=== PATIENT | male | born 1980 | race Caucasian/White ===

== ENCOUNTER 2017-09-08 20:00 | Inpatient (IN) ==
[2017-09-08] MEDS ORDERED: 0.9 % Sodium Chloride 1,000 ML IVC ONE ×2 (20:24→22:53)
--- NOTE | 2017-09-08 20:28 | Emergency Department Note ---
Disposition Clinical Impression: Elevated troponin Sepsis Qualifiers: Sepsis type: sepsis due to unspecified organism Qualified Code(s): A41.9 - Sepsis, unspecified organism Community acquired pneumonia Qualifiers: Laterality: unspecified laterality Qualified Code(s): J18.9 - Pneumonia, unspecified organism Disposition: Admitted As Inpatient Condition: Good Nausea/Vomiting/Diarrhea HPI - General Chief complaint: ED Nausea/Vomiting/Diarrhea Stated complaint: N/V since Wednesday night Time Seen by Provider: 09/08/17 20:23 Source: patient Mode of arrival: private vehicle Limitations: no limitations Nursing Notes Reviewed: Yes Vital Signs Reviewed: Yes - History of Present Illness HPI Narrative: 37-year-old male history of prior IV drug abuse who presents to the ER with a chief complaint of nausea vomiting and chest pain. Patient states she has felt unwell for 2 days with nausea and vomiting. States today he woke up with some right sided pleuritic chest pain. No prior history of cardiovascular disease. No shortness of breath. He is continue to feel unwell during this time. Denies any fevers chills or cough. No other complaints. Pt Subjective Complaint: nausea, vomiting Onset (ago): day(s) Associated Abdominal Pain: No Improves with: nothing Worsens with: nonthing Associated symptoms: Reports: chest pain, nausea/vomiting. Denies: cough, fever /chills - Related Data Home Medications Medication Instructions Recorded Confirmed Ibuprofen 01/18/17 Previous Rx's Medication Instructions Recorded Cyclobenzaprine [Flexeril] 10 mg PO HS PRN #10 tablet 01/18/17 Diclofenac Potassium 50 mg PO TID PRN #20 tablet 01/27/17 Allergies Allergy/AdvReac Type Severity Reaction Status Date / Time No Known Allergies Allergy Verified 02/06/16 20:59 All systems ED: reviewed and negative except as stated. Constitutional: Denies: fever Cardiovascular: Reports: chest pain Respiratory: Denies: cough, dyspnea Gastrointestinal: Reports: nausea, vomiting. Denies: abdominal pain, diarrhea Past Medical History - Past Medical History Attestation: Yes The following information was validated with the patient. Source: patient Medical history: Reports: no medical history Psychiatric history: Reports: no psych history - Social History Smoking Status: Current every day smoker Smokeless Tobacco Status: No Alcohol use: Reports: none Drug use: Reports: none Physical Exam - General Limitations: no limitations General appearance: alert, in no apparent distress - Head Head exam: atraumatic, normocephalic - Eye Eye exam: Present: normal appearance - ENT ENT exam: normal exam - Neck Neck exam: Present: normal inspection, full ROM - Chest Chest inspection: Present: normal inspection, symmetric chest wall rise - Respiratory Respiratory exam: Present: normal lung sounds bilaterally - Cardiovascular Cardiovascular exam: Present: normal rhythm, tachycardia, normal heart sounds - Abdominal Exam Abdominal exam: Present: soft, Non-Tender. Absent: tenderness - Extremities Exam Extremities exam: Present: normal inspection, full ROM - Expanded Upper Extremity Exam Shoulder exam: Present: normal inspection, full ROM Arm exam: Present: normal inspection, full ROM Elbow exam: Present: normal inspection, full ROM Forearm/Wrist exam: Present: normal inspection, full ROM Hand exam: Present: normal inspection, full ROM Vascular exam: Normal: radial pulse - Expanded Lower Extremity Exam Hip/Pelvis exam: Present: normal inspection, full ROM Upper leg exam: Present: normal inspection, full ROM Knee exam: Present: normal inspection, full ROM Lower leg exam: Present: normal inspection, full ROM Ankle exam: Present: normal inspection, full ROM Foot/toe exam: Present: normal inspection, full ROM - Skin Skin exam: Present: warm, dry Course Course Narrative: Patient seen and examined. Vital signs reviewed. We will give him some IV fluids as well as Zofran as well as obtain an EKG, labs including troponin and electrolytes. - Reevaluation(s) Reevaluation #1: Interventional cardiology paged for consultation for EKG. Time: 20:28 Reevaluation #2: Patient remains tachycardic after 1 L of fluids also developed a fever of 101.3 here. Tylenol and additional fluids ordered. He also does meet SIRS criteria with fever tachycardia, leukocytosis and pneumonia. We will add cultures, lactate and Levaquin for pneumonia. - Consultations Consultation #1: I spoke with the on-call maid supervisor Dr. Bliss. Discussed the patient's history, vitals as well as EKG and sent to him for interpretation. Via text reported not a STEMI. Vital Signs Temperature 99.2 F 09/08/17 20:02 Pulse Rate 143 09/08/17 20:02 Respiratory Rate 21 09/08/17 20:02 Blood Pressure 117/73 09/08/17 20:02 O2 Sat by Pulse Oximetry 97 09/08/17 20:02 Temperature 99.9 F H 09/09/17 01:13 Pulse Rate 105 09/09/17 01:13 Respiratory Rate 16 09/09/17 01:21 Blood Pressure 106/61 09/09/17 01:21 O2 Sat by Pulse Oximetry 97 09/09/17 01:13 Oxygen Delivery Oxygen Delivery Nasal Cannula Nausea/Vomiting/Diarrhea - [facility] Narrative Medical decision making narrative: 37-year-old male presents to the ER due to nausea and vomiting for 2 days with generalized aches, chest pain. Noted to be tachycardic upon arrival. EKG was concerning for potential elevation and was sent to interventional cardiology for evaluation. Interventional cardiology review the EKG and reported it was not a STEMI. His chest pain is atypical here. He was noted to have a fever later as well as a leukocytosis with findings of pneumonia on his x-ray. Patient given 2 L of IV fluids for sepsis protocol as well as lactate and cultures. Patient given IV Levaquin for antibiotics. Troponin of 0.04. He is admitted to the hospitalist service for elevated troponin, sepsis, pneumonia. - Lab Data Lab results reviewed: Yes I reviewed the patient's lab results. Result diagrams: 09/08/17 20:35 09/08/17 20:35 Lab Results 09/08/17 09/08/17 09/08/17 Range/Units 20:35 20:35 20:35 WBC 16.2 H (4.3-11.1) K/mcL RBC 4.15 L (4.19-5.50) M/mcL Hgb 13.0 (12.9-16.9) g/dL Hct 37.2 L (37.5-50.1) % MCV 89.6 (83.0-100.0) fL MCH 31.3 (28.0-33.3) pg MCHC 34.9 (31.6-35.5) g/dL RDW 12.7 (11.5-14.5) % Plt Count 92 L (140-400) K/mcL MPV 10.4 (9.4-12.4) fL Immature Gran % 0.9 (0-4) % Seg Neutrophils % 88.5 % Lymphocytes % 2.6 % Monocytes % 7.6 % Eosinophils % 0.1 % Basophils % 0.3 % Neutrophils # 14.3 H (1.6-8.9) K/mcL Lymphocytes # 0.4 L (0.6-4.6) K/mcL Monocytes # 1.2 (0.0-1.3) K/mcL Eosinophils # 0.0 (0.0-0.6) K/mcL Basophils # 0.1 (0.0-0.2) K/mcL Toxic Granulation Present A (Not Present) Toxic Vacuolation Present A (Not Present) Platelet Estimate Decreased L (Normal) Immature Plt Fraction 5.4 (1.1-6.1) % Sodium 126 L (136-145) mEq/L Potassium 3.6 (3.5-5.1) mEq/L Chloride 92 L (98-107) mEq/L Carbon Dioxide 25 (23-29) mEq/L BUN 13 (6-20) mg/dL Creatinine 0.97 (0.70-1.30) mg/dL Est GFR ( Amer) > 60 (> 60) Est GFR (Non-Af Amer) > 60 (> 60) BUN/Creatinine Ratio 13 (6-26) Glucose 140 H (70-105) mg/dL Calculated Osmolality 264 L (280-300) Lactic Acid (0.5-2.2) mmol/L Calcium 8.4 L (8.6-10.3) mg/dL Troponin I 0.04 H* (< 0.04) ng/mL 09/08/17 Range/Units 23:15 WBC (4.3-11.1) K/mcL RBC (4.19-5.50) M/mcL Hgb (12.9-16.9) g/dL Hct (37.5-50.1) % MCV (83.0-100.0) fL MCH (28.0-33.3) pg MCHC (31.6-35.5) g/dL RDW (11.5-14.5) % Plt Count (140-400) K/mcL MPV (9.4-12.4) fL Immature Gran % (0-4) % Seg Neutrophils % % Lymphocytes % % Monocytes % % Eosinophils % % Basophils % % Neutrophils # (1.6-8.9) K/mcL Lymphocytes # (0.6-4.6) K/mcL Monocytes # (0.0-1.3) K/mcL Eosinophils # (0.0-0.6) K/mcL Basophils # (0.0-0.2) K/mcL Toxic Granulation (Not Present) Toxic Vacuolation (Not Present) Platelet Estimate (Normal) Immature Plt Fraction (1.1-6.1) % Sodium (136-145) mEq/L Potassium (3.5-5.1) mEq/L Chloride (98-107) mEq/L Carbon Dioxide (23-29) mEq/L BUN (6-20) mg/dL Creatinine (0.70-1.30) mg/dL Est GFR ( Amer) (> 60) Est GFR (Non-Af Amer) (> 60) BUN/Creatinine Ratio (6-26) Glucose (70-105) mg/dL Calculated Osmolality (280-300) Lactic Acid 1.0 (0.5-2.2) mmol/L Calcium (8.6-10.3) mg/dL Troponin I (< 0.04) ng/mL - Radiology Data Radiology results reviewed: Yes I reviewed the patient's radiology results. Chest X-Ray 09/08/17 20:06 IMPRESSION: Findings concerning for bilateral lower lobe pneumonia with possible nodule in the left upper lobe warranting follow-up D/ / Antoine Lepe MD / Antoine Lepe MD Interpreting Provider: Antoine Lepe MD - EKG Data EKG attestation: Yes I reviewed and interpreted this EKG. EKG results narrative: EKG demonstrates sinus tachycardia with rate of 135. Normal axis. Normal intervals. Normal R-wave progression. There are ST elevations in leads V1 and V2 without reciprocal changes. No ST depressions. No previous EKG for comparison. S.B.A.R. - S.B.A.R. Situation: Demographics, MOA Background: Presenting Complaint, Relevant PMH, Meds, & Allergies Assessment: Vital Signs, Course and respsone to treatment, Exam Concerns, Patient/Family Expectation, Pertinant Lab Results Recommendation: Barrier(s) to disposition, Recommendation based on pending studies, treatments, or consults S.B.A.R. Report Given to: Dr. Collins Attestation Statement - Attestation Attestation: I, Ashok March MD, personally evaluated this patient and discussed their management with the resident physician. I reviewed the resident's note and agree with the documented findings, medical decision making, and plan of care. 37-year-old male presents to the emergency department with a complaint that for 2 days prior to today he has had nausea and vomiting all day and unable to keep anything down. Today the nausea and vomiting resolved however today he states he is just generalized body aches and not felt well. He complains of pain in his left foot. He also complains of pain in both shoulders and some localized pleuritic pain in the right mid chest which is worse with breathing. He denies shortness of breath but states it hurts to breathe. No definite fever. Some cough. No history of any heart disease or hypertension or breathing problems. He does have a history of IV drug abuse but denies recent use. He uses heroin. On examination patient is a well-developed well-nourished male in no acute distress. He is alert and oriented 3. There is no cyanosis or diaphoresis. Chest is nontender to palpation. Breath sounds are clear and equal bilaterally with no rales or wheezes noted. Heart is regular with a moderate tachycardia. Abdomen is soft and nontender with normal bowel sounds. Labs reviewed. WBC 16.2 with 88.5% segs. Sodium 126. Troponin 0.04. Chest x- ray shows bilateral lower lobe pneumonia with possible left upper lobe nodule. EKG shows a sinus tachycardia with a ventricular rate of 135. There is ST segment elevation in V1 and V2 with no reciprocal changes noted. EKG was reviewed by the maid supervisor, Dr. Bliss, who did not feel this was a STEMI.
[2017-09-08 20:46] LABS: Basophils % 0.3 %; Eosinophils % 0.1 %
[2017-09-08 20:48] LABS: Basophils # 0.1 K/mcL (0.0-0.2); Hematocrit 37.2 % (37.5-50.1); Immature Granulocytes % 0.9 % (0-4); Immature Platelets 5.4 % (1.1-6.1); Lymphocytes # 0.4 K/mcL (0.6-4.6); Lymphocytes % 2.6 %; Mean Corpuscular HGB Conc 34.9 g/dL (31.6-35.5); Mean Corpuscular Hemoglobin 31.3 pg (28.0-33.3); Mean Corpuscular Volume 89.6 fL (83.0-100.0); Mean Platelet Volume 10.4 fL (9.4-12.4); Monocytes # 1.2 K/mcL (0.0-1.3); Monocytes % 7.6 %; Red Blood Count 4.15 M/mcL (4.19-5.50); Red Cell Distribution Width 12.7 % (11.5-14.5); Segmented Neutrophils % 88.5 %
[2017-09-08 21:12] LABS: Neutrophils # 14.3 K/mcL (1.6-8.9); Platelet Count 92 K/mcL (140-400)
[2017-09-08 21:16] LABS: Platelet Estimate Decreased (Normal); Toxic Granulation Present (Not Present); Toxic Vacuolation Present (Not Present)
[2017-09-08 21:23] LABS: BUN/Creatinine Ratio 13 (6-26); Blood Urea Nitrogen 13 mg/dL (6-20); Calcium 8.4 mg/dL (8.6-10.3); Carbon Dioxide 25 mEq/L (23-29); Chloride 92 mEq/L (98-107); Glucose 140 mg/dL (70-105); Osmolality,Calculated 264 (280-300); Potassium 3.6 mEq/L (3.5-5.1); Sodium 126 mEq/L (136-145); eGFR For African Americans > 60 (> 60); eGFR For Non-African Americans > 60 (> 60)
[2017-09-08] MEDS ORDERED: Aspirin 81 MG TAB.CHEW PO ONE (21:48)
[2017-09-08] MEDS ORDERED: Ketorolac 15 MG/ML VIAL IVP ONE (21:48)
[2017-09-08] MEDS ORDERED: Levofloxacin 750 MG/150 ML 750 MG/150 ML BAG IVPB ONE (22:53)
[2017-09-09] MEDS ORDERED: Naloxone 0.4 MG/ML INJ IVP PRN (01:20)
[2017-09-09] MEDS ORDERED: Vancomycin 1,000 MG in D5% in Water 250 ML IVPB SCH (02:00)
[2017-09-09] MEDS: 0.9 % Sodium Chloride 1,000 ML IVC SCH ×2 (03:07→17:24)
[2017-09-09 03:16] LABS: Eosinophils % 0.2 %; Mean Platelet Volume 10.2 fL (9.4-12.4); Red Blood Count 3.68 M/mcL (4.19-5.50)
[2017-09-09 03:17] LABS: Basophils % 0.2 %; Hematocrit 33.1 % (37.5-50.1); Hemoglobin 11.4 g/dL (12.9-16.9); Immature Granulocytes % 1.3 % (0-4); Immature Platelets 5.9 % (1.1-6.1); Lymphocytes # 0.4 K/mcL (0.6-4.6); Lymphocytes % 2.8 %; Mean Corpuscular HGB Conc 34.4 g/dL (31.6-35.5); Mean Corpuscular Volume 89.9 fL (83.0-100.0); Monocytes # 1.1 K/mcL (0.0-1.3); Monocytes % 7.4 %; Neutrophils # 13.4 K/mcL (1.6-8.9); Nucleated Red Blood Cells 0.5 /100 WBC (0); Red Cell Distribution Width 12.8 % (11.5-14.5); Segmented Neutrophils % 88.1 %
[2017-09-09 03:35] LABS: BUN/Creatinine Ratio 14 (6-26); Blood Urea Nitrogen 14 mg/dL (6-20); Calcium 7.5 mg/dL (8.6-10.3); Carbon Dioxide 24 mEq/L (23-29); Chloride 96 mEq/L (98-107); Glucose 111 mg/dL (70-105); Magnesium 1.6 mg/dL (1.6-2.6); Osmolality,Calculated 265 (280-300); Potassium 3.7 mEq/L (3.5-5.1); Sodium 127 mEq/L (136-145); eGFR For African Americans > 60 (> 60); eGFR For Non-African Americans > 60 (> 60)
[2017-09-09 03:44] LABS: Platelet Count 77 K/mcL (140-400)
[2017-09-09 03:50] LABS: Platelet Estimate Decreased (Normal)
--- NOTE | 2017-09-09 04:12 | Internal Med History&Physical ---
Date of Encounter: 09/09/17 Time of Encounter: 01:00 Assessment and Plan (1) DVT prophylaxis Current visit: Yes Status: Acute Heparin SC (2) History of intravenous drug abuse Current visit: Yes Status: Acute Pt said last IV drug use was 5 months ago. (3) Elevated troponin Current visit: Yes Status: Acute Pt c/o chest pain with first troponin 0.04. Need to r/o ACS which although less likely in this young pt. - Continuous cardiac monitoring. - F/U 3 sets of troponin. (4) Sepsis Current visit: Yes Status: Acute Pt meets sepsis criteria by leukocytosis, tachycardia, and fever. - IVF resuscitation started in ER, will cont, Lactate 1.0>1.0 - Place pt on broad spectrum Abx vanco and zosyn considering hx of IVDU - Follow up blood culture - Echo to r/o vegetations/endocarditis. Pt is at high risk because he is on vanco, need close monitoring. Qualifiers: Sepsis type: sepsis due to unspecified organism Qualified Code(s): A41.9 - Sepsis, unspecified organism (5) Pneumonia Current visit: Yes Status: Acute CXR shows B/L lower lobe pneumonia. Consider pt has hx of IVDU, will order CT chest to r/o septic emboli. - Place pt on broad spectrum Abx and f/u with blood culture. Qualifiers: Pneumonia type: due to Pneumococcus Laterality: bilateral Lung location: lower lobe of lung Qualified Code(s): J13 - Pneumonia due to Streptococcus pneumoniae (6) Lung nodules Current visit: Yes Status: Acute CXR shows possible left upper lobe nodules, pt has hx of smoking. Will order CT chest to confirm nodule and determine f/u protocol. Internal Medicine - H&P: HPI Chief complaint: SOB Admitted From: Home Plans for Post Hospital Care: Home History of present illness: Mr. Reynoso is a 37 year old male with Hx of IVDU present to ER for SOB. Pt said the SOB started from this morning. Pt also has fever. Pt denies cough. Pt c /o chest pain on right side of chest, radiated to left shoulder and left foot. Pt denies nausea or diaphoresis. Pt also c/o whole body muscle ache. In ER, CXR shows bibasal pneumonia, pt was admitted for further management. Past Med Surg Social Fam HX - Past Medical History Medical history: no medical history Psychiatric history: no psych history - Social History Smoking Status: Current every day smoker Smokeless Tobacco Status: No Alcohol use: none Drug use: none - Family History Mother History Unknown: Yes Internal Medicine - H&P: Meds Cyclobenzaprine [Flexeril] 10 mg PO HS PRN #10 tablet 01/18/17 [Rx] Ibuprofen 01/18/17 [History] Diclofenac Potassium 50 mg PO TID PRN #20 tablet 01/27/17 [Rx] 3 Allergy/AdvReac Type Severity Reaction Status Date / Time No Known Allergies Allergy Verified 02/06/16 20:59 All Systems PM: A 10-system review of systems was performed and is negative for pertinent findings except as documented above in the HPI. - Constitutional Vitals: Temp Pulse Resp BP Pulse Ox 99.4 F 107 16 135/73 97 09/09/17 01:42 09/09/17 01:42 09/09/17 01:42 09/09/17 01:42 09/09/17 02:30 General appearance: Present: A&O X 3, no acute distress, answers questions appropriately - Head Head exam: Present: atraumatic, normocephalic - Eye Eye exam: Present: PERRL, conjuntiva pink, sclera anicteric Pupils: Present: PERRL - Neck Neck exam general surgery: Present: supple, trachea midline. Absent: lymphadenopathy - Respiratory Respiratory exam: Present: CTAB. Absent: accessory muscle use, rales, rhonchi, wheezes - Cardiovascular Cardiovascular exam: Present: RRR, +S1, +S2, tachycardia. Absent: diastolic murmur, gallop, rubs, systolic murmur - GI/Abdominal GI/Abdominal exam: Present: normal bowel sounds, soft, no peritoneal signs. Absent: distended, tenderness - Extremities Exam Extremities exam: Present: warm, radial pulses palpable and symmetrical. Absent : calf tenderness, cyanotic, pedal edema - Neurological Exam Neurological exam: Present: CN II-XII intact, oriented X3, no focal deficits. Absent: pronater drift, facial droop, speech deficit - Skin Skin exam: Present: dry, intact Internal Med - H&P Results - Labs CBC & Chem 7: 09/09/17 03:03 09/09/17 03:03 Labs: Short CBC 09/09/17 Range/Units 03:03 WBC 15.2 H (4.3-11.1) K/mcL Hgb 11.4 L D (12.9-16.9) g/dL Hct 33.1 L (37.5-50.1) % Plt Count 77 L (140-400) K/mcL Neutrophils # 13.4 H (1.6-8.9) K/mcL BMP 09/09/17 03:03 Sodium 127 L Potassium 3.7 Chloride 96 L Carbon Dioxide 24 BUN 14 Creatinine 0.97 Glucose 111 H Calcium 7.5 L Cardiac Enzymes 09/09/17 Range/Units 03:03 Troponin I < 0.03 (< 0.04) ng/mL - EKG Data EKG shows normal: sinus rhythm Rate: tachycardia
[2017-09-09] MEDS: Ketorolac 15 MG/ML VIAL IVP PRN ×3 (04:58→17:25)
[2017-09-09] MEDS: Acetaminophen 325 MG TABLET PO PRN (04:58)
[2017-09-09] MEDS: *HR* Heparin 5,000 UNIT/ML VIAL SQ SCH ×2 (04:58→17:25)
[2017-09-09] MEDS ORDERED: Aminoglycoside Consult 1 EACH MC ONE (08:16)
[2017-09-09 11:34] LABS: Acinetobacter baumannii by PCR Not Detected (Not Detect); Candida albicans by PCR Not Detected (Not Detect); Candida glabrata by PCR Not Detected (Not Detect); Candida krusei by PCR Not Detected (Not Detect); Candida parapsilosis by PCR Not Detected (Not Detect); Candida tropicalis by PCR Not Detected (Not Detect); Enterococcus by PCR Not Detected (Not Detect); Escherichia coli by PCR Not Detected (Not Detect); Klebsiella oxytoca by PCR Not Detected (Not Detect); Klebsiella pneumoniae by PCR Not Detected (Not Detect); Pseudomonas aeruginosa by PCR Not Detected (Not Detect); Serratia marcescens by PCR Not Detected (Not Detect); Staphylococcus aureus by PCR ***DETECTED*** (Not Detect); Streptococcus agalactiae(B)PCR Not Detected (Not Detect); Streptococcus by PCR Not Detected (Not Detect); Streptococcus pneumoniae PCR Not Detected (Not Detect); Streptococcus pyogenes (A) PCR Not Detected (Not Detect); mecA Methicillin-Resist Gene Not Detected (Not Detect)
--- NOTE | 2017-09-09 11:52 | Event Note ---
Date of Encounter: 09/09/17 Time of Encounter: 11:50 Patient admitted yesterday with sepsis. Workup shows elevated white count. Patient has been febrile with a MAXIMUM TEMPERATURE of 100.6. CT chest shows findings of possibly septic emboli. Blood cultures are positive. Patient is on vancomycin and Zosyn. An echo is pending. We will consult ID to help with antibiotics as I suspect the patient may have infective endocarditis. Continue with IV fluids. The patient is also being treated as possible pneumonia although I suspect that this is less likely and his findings are most likely secondary to the septic emboli.
--- NOTE | 2017-09-09 14:10 | Infectious Disease Consult ---
Date of Encounter: 09/09/17 Time of Encounter: 13:00 Assessment and Plan (1) Severe sepsis Status: Acute Assessment and plan: 4 SIRS criteria met on 09/09: febrile, tachycardic, tachypnic, and leuokcytosis present secondary to MSSA bacteremia Slight elevation in serum troponin, septic emboli present, possible septic joint (2) MSSA bacteremia Status: Acute Assessment and plan: 2/2 blood cultures preliminarily positive for gram positive cocci PCR serology positive for Staph aureus Complicated by the presence of septic emboli Possible septic left shoulder 1 Major and 3 minor sky criteria met bacteremia of staphylcoccus aureus history of IV drug use septic emboli present Continued fever Recommend PURVI to further evaluate for valvular involvement in the heart Will repeat blood cultures Stop Vancomycin and Zosyn Start cefazolin 2g Q8hr (3) History of intravenous drug abuse Status: Acute Assessment and plan: Patient reports last heroin use 5 months ago and reports using clean needles while he was using Will obtain hepatitis panel and HIV screen Infectious Disease HPI - Data of Consult Patient: new to practice Consult date: 09/09/17 Requesting Physician: Trevor Dooley Primary Care Provider: PCP NONE - Consult Narrative Reason for consult: bacteremia/septic emboli/suspected endocarditis History of present illness: Mr. Reynoso is a 37 year old male with a history of IV drug usage presents to [facility] on 09/08 due to shortness of breath, fever, and chest pain. ID was consulted on 09/09 jewell to concerns of bacteremia, septic emboli, and endocarditis. He states that prior to coming to the hospital he had been having low grade fevers, nuasea with vomiting, and anorexia for several days. When he woke this morning however he states the nausea had gone away and was replaced with chest pain and shortness of breath with continued low grade fevers. Upon presentation the patient was found to be septic. A CXR revealed signs concerning for pneumonia and a follow up CT showed septic emboli and small pleural effusions.His troponin was mildly elevated. He was given fluids and antibiotics (Vancomycin and Zosyn) in the ER last night. Enchocardiogram performed on 09/09 showed mild tricuspid regurgitation, but was otherwise normal. Patient was found to have 2/2 positive blood cultures for gram+ cocci and PCR positive for staphylococcus. On 09/09 it appears that his white count has remained relatively stable (though might be starting to trend down) and his troponin normalized. He has a prior medical history significant for IV drug use. He states he would use clean needs to use heroin. He reports that his last use was 05/11. He is a current smoker, reporting smoking 1ppd for 1 years. He does not drink and denies current drug usage. He currently lives at home with his mom who has 2 dogs and a cat all of which are up to date on their immunizations. He denies any recent travel or sick contacts. As of this afternoon, he is lying in bed stating that he is more comfortable than last night. He reports that he has continued chest pain that is primarily located in the right anterior chest. He states that the pain is sharp and made worse with inspiration and moving. Pushing on the spot does not elicit the pain. He hasn't really taken anything for it and states that it radiates to both shoulders. He denies having diaphoresis, chills, nausea or vomiting at this point in time. He has never had anything like this before. CC: Trevor Dooley Past Med Surg Social Fam HX - Past Medical History Medical history: no medical history Psychiatric history: no psych history - Social History Smoking Status: Current every day smoker Smokeless Tobacco Status: No Alcohol use: none Drug use: none - Family History Mother History Unknown: Yes Infectious Disease-CN:Meds No Known Home Drugs 09/09/17 [History] 3 Allergy/AdvReac Type Severity Reaction Status Date / Time No Known Allergies Allergy Verified 09/09/17 08:18 - Constitutional Constitutional: Present: anorexia, fever(s). Absent: chills, headache(s), night sweats - EENT Eyes: Absent: change in vision Nose, mouth and throat: Absent: headache(s), neck pain - Cardiovascular Cardiovascular: Present: dyspnea. Absent: chest pain, diaphoresis - Respiratory Respiratory: Present: dyspnea, hemoptysis, pain on inspiration. Absent: cough - Gastrointestinal Gastrointestinal: Absent: abdominal pain, constipation, diarrhea, nausea, vomiting - Genitourinary Additional comments: denies dysuria, denies hematuria - Musculoskeletal Musculoskeletal: Present: arthralgias (left shoulder). Absent: myalgias, neck pain - Integumentary Integumentary: Absent: change in nails, new lesions, pruritus, rash, skin ulcer , sores, jaundice - Neurological Neurological: Absent: headache(s) Exam - Constitutional Vitals: Temp Pulse Resp BP Pulse Ox 100.1 F H 110 17 108/66 98 09/09/17 05:56 09/09/17 05:56 09/09/17 05:56 09/09/17 05:56 09/09/17 05:56 General appearance: average body habitus, mild distress - Head Head exam: Present: atraumatic, normal inspection, normocephalic - Expanded Head Exam Head exam: Absent: Worrell's sign, contusion, hematoma, raccoon eyes - Eye Eye exam: Present: EOMI, normal appearance, PERRL, conjuntiva pink. Absent: conjunctival injection, scleral icterus Additional comments: no conjunctival hemmorhages - ENT ENT exam: Present: mucous membranes moist, normal oropharynx - Neck Neck exam: Absent: lymphadenopathy, tenderness - Respiratory Respiratory exam: Present: rales (b/l). Absent: accessory muscle use, chest wall tenderness, rhonchi, stridor, wheezes - Cardiovascular Cardiovascular exam: Present: tachycardia. Absent: diastolic murmur, gallop, rubs, systolic murmur - GI/Abdominal GI/Abdominal exam: Present: soft. Absent: organomegaly, rebound, rigid, tenderness - Extremities Exam Extremities exam: Present: tenderness (in left shoulder). Absent: calf tenderness, joint swelling - Neurological Exam Neurological exam: Present: alert, CN II-XII intact, oriented X3. Absent: motor sensory deficit - Psychiatric Psychiatric exam: Present: normal affect, normal mood - Skin Skin exam: Present: dry, intact, normal color, warm Additional comments: no stigmata of endocarditis present Infectious Disease CN: Results - Labs CBC & Chem 7: 09/09/17 03:03 09/09/17 03:03 Cultures: 2/2 blood culture preliminarily positive for gram positive cocci PCR positive for staphylcoccus aureus Consult Discharge Plan - Plan Referrals: Jorge Pabon DO [Resident] - 10/15/17 2:00 pm - Attending Attestation I examined this patient and my medical decision-making was reviewed with the Resident Physician. I agree with the documented findings, disposition and treatment plan as described except to the extent set forth below. This is an addendum to original report dictated by resident physician. Please refer to residents note for full details. Patient is a 37-year-old gentleman who does not have any active medical problems and surgical history is noncontributory with no hardware in his body and a social history of IV drug use, last used IV drugs a week and half ago where he relapsed but prior to that was April of last year came in to [facility] complaining of nausea vomiting and pleuritic chest pain for a few days prior to admission. Patient was also noted in the emergency department to be febrile, tachycardic and had leukocytosis with a WBC of 16.2 thousand. Workup on the patient CT chest revealed multiple septic emboli and interesting emphysematous changes on the apices of the lungs that at her much worse when it comes his age. Patient also had blood cultures done on 09/08/17 and 2 out of 2 sets grew MSSA. We were asked to evaluate the patient and make further recommendations. On physical exam patient appears toxic he appears ill and uncomfortable. Patient is complaining of pleuritic chest pain and having pain with deep breathing. Patient has no conjunctival hemorrhage, I did not appreciate any murmur, no endocarditis stigmata on the skin. On muscle skeletal exam patient does have joint pain in bilateral shoulders but much worse on the left. There was some tenderness to palpation but will do was no edema or erythema. There was Pain with passive movement. Patient has a complicated MSSA bacteremia with septic emboli to the lungs and concern for septic emboli to the shoulder as well. Likely source is IV drug use. Patient last used IV drugs a week and a half ago. At this point repeat blood cultures to make sure the MSSA bacteremia has resolved. Patient has IV drug use, so I will check hepatitis B and C profile and HIV status. Well need to ask orthopedics to evaluate his shoulder and see if they need to do an arthrocentesis or imaging. I believe this patient does not require vancomycin and Zosyn at this point, consider switching to cefazolin 2 g IV every 8 hours. Duration of treatment is at least 4-6 weeks. Patient will be challenging because he is an IV drug user Im not sure we can put a PICC line in him. Well have to discuss with social work and see what we can do regarding placement.
--- NOTE | 2017-09-09 19:00 | Orthopedic Consult Note ---
Date of Encounter: 09/09/17 Time of Encounter: 18:51 History of Present Illness Chief complaint: Left shoulde pain, resolving HPI: Mr. Reynoso is a 37 year old clmog-xwwy-[id number] male admitted with several day history of generalized malaise and shortness of breath with low-grade fevers. He was admitted and found to have MSSA bacteremia. Patient had a CT of the chest performed and is suspicious for septic emboli. Patient does have a history of IV drug abuse in the past. Patient states that he developed left shoulder pain with the onset of the worsening pain in his chest. He states that today the pain is much improved from where it was last night. Denies any previous episodes of pain or difficulty with the shoulder. Denies neurovascular complaints. Denies any limitations in motion or function. Complete history and physical data was reviewed, please see the completed portion of the medical record for those details. Pertinent orthopedic examination reveals normal range of motion function and strength. No evidence of impingement. No evidence of rotator cuff weakness. No evidence of periarticular swelling nor effusion. No tenderness to palpation of the clavicle acromion with a proximal humerus. I reviewed a chest x-ray as well as a chest CT scan. The limited visualization of the shoulder at this time showed no evidence of an effusion or evidence of fluid about the shoulder proper. No evidence of bony destruction. Laboratory data included a white cell count of 16.2 which has dropped to 15.2. Platelet now has dropped from 92, 000-77,000. Neutrophil count has dropped from 14.3-13.4. Patient is hyponatremic at 127. BUN/creatinine are normal. 2 peripheral blood cultures were positive for gram-positive cocci. Serology was positive for Staphylococcus aureus, MSSA. Impression: Left shoulder pain, resolving. Suspected secondary to pulmonary or pleuritic etiology. Doubt septic process Recommendation: I would not recommend any further workup unless the patient complains of worsening pain. A septic joint would probably not improved with less than 24 hours worth of intravenous antibiotics. If the patient's condition progresses or worsens, will consider MRI of the shoulder. If an effusion is identified, arthrocentesis for studies would be indicated. Will follow as needed. Thank you very much for allowing me to see and care for Mr. Reynoso. Sincerely, Guido Mcknight,DO Past Med Surg Social Fam HX - Past Medical History Medical history: no medical history Psychiatric history: no psych history - Social History Smoking Status: Current every day smoker Smokeless Tobacco Status: No Alcohol use: none Drug use: none - Family History Mother History Unknown: Yes Medications and Allergies No Known Home Drugs 09/09/17 [History] 3 Allergy/AdvReac Type Severity Reaction Status Date / Time No Known Allergies Allergy Verified 09/09/17 08:18 All Systems Reviewed: A 10-system review of systems was performed and is negative for pertinent findings except as documented above in the HPI. Physical Exam - Constitutional Vitals: Temp Pulse Resp BP Pulse Ox 98.1 F 107 17 122/74 96 09/09/17 13:49 09/09/17 13:49 09/09/17 13:49 09/09/17 13:49 09/09/17 13:49 Results - Labs Result Diagrams: 09/09/17 03:03 09/09/17 03:03 Labs: Abnormal lab results WBC 15.2 K/mcL (4.3-11.1) H 09/09/17 03:03 RBC 3.68 M/mcL (4.19-5.50) L 09/09/17 03:03 Hgb 11.4 g/dL (12.9-16.9) L D 09/09/17 03:03 Hct 33.1 % (37.5-50.1) L 09/09/17 03:03 Plt Count 77 K/mcL (140-400) L 09/09/17 03:03 Neutrophils # 13.4 K/mcL (1.6-8.9) H 09/09/17 03:03 Lymphocytes # 0.4 K/mcL (0.6-4.6) L 09/09/17 03:03 Nucleated RBCs/100 WBC 0.5 /100 WBC (0) H 09/09/17 03:03 Toxic Granulation Present (Not Present) A 09/08/17 20:35 Toxic Vacuolation Present (Not Present) A 09/08/17 20:35 Platelet Estimate Decreased (Normal) L 09/09/17 03:03 Sodium 127 mEq/L (136-145) L 09/09/17 03:03 Chloride 96 mEq/L (98-107) L 09/09/17 03:03 Glucose 111 mg/dL (70-105) H 09/09/17 03:03 Calculated Osmolality 265 (280-300) L 09/09/17 03:03 Calcium 7.5 mg/dL (8.6-10.3) L 09/09/17 03:03 Staphylococcus sp PCR DETECTED (Not Detect) A 09/08/17 23:06 Staph aureus (PCR) DETECTED (Not Detect) A 09/08/17 23:06 H & H 09/09/17 Range/Units 03:03 Hgb 11.4 L D (12.9-16.9) g/dL Hct 33.1 L (37.5-50.1) % All other labs normal. Consult Discharge Plan - Plan Referrals: Jorge Pabon DO [Resident] - 10/15/17 2:00 pm
[2017-09-10] MEDS: CeFAZolin Premix DUPLEX 2,000 MG/50 ML BAG IVPB SCH ×3 (00:11→15:17)
[2017-09-10] MEDS: Acetaminophen 325 MG TABLET PO PRN (00:11)
[2017-09-10] MEDS: Ketorolac 15 MG/ML VIAL IVP PRN ×4 (00:18→22:08)
[2017-09-10] MEDS: *HR* Heparin 5,000 UNIT/ML VIAL SQ SCH ×2 (05:12→15:17)
[2017-09-10 05:42] LABS: Basophils % 0.2 %; Hemoglobin 10.4 g/dL (12.9-16.9); Mean Platelet Volume 11.2 fL (9.4-12.4); Red Cell Distribution Width 13.2 % (11.5-14.5); Segmented Neutrophils % 79.3 %
[2017-09-10 05:44] LABS: Eosinophils # 0.1 K/mcL (0.0-0.6); Eosinophils % 0.9 %; Hematocrit 30.1 % (37.5-50.1); Immature Granulocytes % 2.4 % (0-4); Immature Platelets 6.8 % (1.1-6.1); Lymphocytes # 0.7 K/mcL (0.6-4.6); Lymphocytes % 5.8 %; Mean Corpuscular HGB Conc 34.6 g/dL (31.6-35.5); Mean Corpuscular Hemoglobin 31.2 pg (28.0-33.3); Mean Corpuscular Volume 90.4 fL (83.0-100.0); Monocytes # 1.4 K/mcL (0.0-1.3); Monocytes % 11.4 %; Neutrophils # 9.9 K/mcL (1.6-8.9); Red Blood Count 3.33 M/mcL (4.19-5.50)
[2017-09-10 05:56] LABS: Platelet Count 79 K/mcL (140-400)
[2017-09-10 06:11] LABS: BUN/Creatinine Ratio 17 (6-26); Blood Urea Nitrogen 17 mg/dL (6-20); Calcium 7.4 mg/dL (8.6-10.3); Carbon Dioxide 23 mEq/L (23-29); Chloride 106 mEq/L (98-107); Glucose 102 mg/dL (70-105); Osmolality,Calculated 282 (280-300); Potassium 3.8 mEq/L (3.5-5.1); Sodium 135 mEq/L (136-145); eGFR For African Americans > 60 (> 60); eGFR For Non-African Americans > 60 (> 60)
[2017-09-10 06:26] LABS: Platelet Estimate Decreased (Normal)
--- NOTE | 2017-09-10 08:49 | Internal Med Progress Note ---
Date of Encounter: 09/10/17 Time of Encounter: 08:47 - Assessment and plan (1) Sepsis Current Visit: Yes Status: Acute Assessment and plan: Increased as below. Qualifiers: Sepsis type: sepsis due to unspecified organism Qualified Code(s): A41.9 - Sepsis, unspecified organism (2) Infective endocarditis Current Visit: Yes Status: Acute Assessment and plan: We will continue to treat and follow IDs recommendations. Continue cefazolin for now. Follow up on repeat blood cultures. PURVI is pending. TTE with no vegetations. The patient continues to have elevated temperatures. WBC count is trending down. Qualifiers: Infective endocarditis organism: bacterial Chronicity: acute Qualified Code(s): I33.0 - Acute and subacute infective endocarditis (3) MSSA bacteremia Current Visit: Yes Status: Acute Assessment and plan: Repeat blood cultures pending. Continue with cefazolin for now. PURVI pending (4) Pulmonary embolism, septic Current Visit: Yes Status: Acute Assessment and plan: Likely secondary to infective endocarditis. Treatment as above. Qualifiers: Chronicity: acute Acute cor pulmonale presence: without acute cor pulmonale Qualified Code(s): I26.90 - Septic pulmonary embolism without acute cor pulmonale (5) History of intravenous drug abuse Current Visit: Yes Status: Acute Assessment and plan: Patient says he was clean for some time however he had a relapse a couple weeks ago as his mom had kicked him out of his house. The patient was counseled. HIV and hepatitis panel pending (6) DVT prophylaxis Current Visit: Yes Status: Acute Assessment and plan: Heparin subcutaneous - Subjective Interval history: Patient was seen and examined. He had a MAXIMUM TEMPERATURE 102 last night. Patient admitted yesterday with sepsis. Workup showed elevated white count. Patient has been febrile. CT chest shows findings of possibly septic emboli. Blood cultures are positive for MSSA. Patient was on vancomycin and Zosyn which was switched to Ancef per ID. An echo with no vegetations. The patient is also being treated as possible pneumonia although I suspect that this is less likely and his findings are most likely secondary to the septic emboli. - Constitutional Vitals: Temp Pulse Resp BP Pulse Ox 98.2 F 99 16 122/73 94 09/10/17 08:13 09/10/17 08:13 09/10/17 08:13 09/10/17 08:13 09/10/17 08:13 General appearance: Present: A&O X 3, no acute distress, answers questions appropriately Exam: GEN: NAD CVS: RRR. S1, S2, No m/r/g RESP: CTAB ABD: Soft, NT, ND, +BS EXT: No edema. 2+ DP, No rashes NEURO: Nonfocal Internal Medicine: Result - Labs CBC & Chem 7: 09/10/17 04:24 09/10/17 04:24 Labs: Short CBC 09/10/17 Range/Units 04:24 WBC 12.5 H (4.3-11.1) K/mcL Hgb 10.4 L (12.9-16.9) g/dL Hct 30.1 L (37.5-50.1) % Plt Count 79 L (140-400) K/mcL Neutrophils # 9.9 H (1.6-8.9) K/mcL BMP 09/10/17 04:24 Sodium 135 L Potassium 3.8 Chloride 106 Carbon Dioxide 23 BUN 17 Creatinine 1.02 Glucose 102 Calcium 7.4 L Cardiac Enzymes 09/09/17 Range/Units 08:18 Troponin I < 0.03 (< 0.04) ng/mL - Impressions Impressions Echocardiogram 09/09/17 01:27 Impressions: LVEF 60-65%. Normal right ventricular structure and function. Mild tricuspid regurgitation. No pulmonary hypertension. No evidence for valvular vegetations. Left Ventricular Wall Motion: Rest Echo Findings All wall segments showed normal motion. Findings: Study Quality * Technically adequate exam. ECG Findings * Sinus tachycardia. Left Ventricle * LVEF 60-65%. * Normal LV chamber size, wall thickness and function. * Indeterminate diastolic function. Right Ventricle * Normal right ventricular structure and function. Left Atrium * Normal left atrial size. Right Atrium * Normal right atrial size. Aortic Valve * No aortic regurgitation. * Trileaflet aortic valve. * No aortic stenosis. Mitral Valve * No mitral regurgitation. * Normal mitral valve structure. * No mitral stenosis. Tricuspid Valve * Mild tricuspid regurgitation. * Normal tricuspid valve structure. * Estimated RA pressure is 3 mmHg. * Estimated RVSP is 27 mmHg. * No pulmonary hypertension. Pulmonic Valve * Pulmonic valve is not well visualized. * No pulmonic stenosis. * No pulmonic regurgitation. Pulmonary Artery * Pulmonary artery not well visualized. Aorta * Normally sized aortic root. * Ascending aorta not well visualized. Pericardium * There is no pericardial effusion present. Interatrial Septum * No evidence of PFO by color Doppler. IVC * Small IVC size. Normal collapse. Chest CT 09/09/17 10:30 IMPRESSION: 1. Findings are consistent with septic pulmonary emboli as well as more diffuse consolidation in both lower lobes. Small bilateral effusions are present. 2. Emphysema at the lung apices, greater than expected for age. D/ / 09/09/2017 11:29:21 Ted Valadez MD / susan Interpreting Provider: Ted Valadez MD Consult Discharge Plan - Plan Referrals: Jorge Pabon DO [Resident] - 10/15/17 2:00 pm
[2017-09-11] MEDS: CeFAZolin Premix DUPLEX 2,000 MG/50 ML BAG IVPB SCH ×4 (00:29→23:52)
[2017-09-11] MEDS: Ketorolac 15 MG/ML VIAL IVP PRN ×3 (05:17→19:05)
[2017-09-11] MEDS: Acetaminophen 325 MG TABLET PO PRN ×2 (05:18→22:51)
[2017-09-11] MEDS: *HR* Heparin 5,000 UNIT/ML VIAL SQ SCH ×2 (05:26→16:45)
[2017-09-11 05:42] LABS: Basophils % 0.3 %; Eosinophils # 0.1 K/mcL (0.0-0.6); Eosinophils % 1.1 %; Hemoglobin 9.4 g/dL (12.9-16.9); Immature Granulocytes % 1.1 % (0-4); Lymphocytes # 1.2 K/mcL (0.6-4.6); Mean Corpuscular HGB Conc 34.8 g/dL (31.6-35.5); Mean Corpuscular Hemoglobin 30.9 pg (28.0-33.3); Mean Corpuscular Volume 88.8 fL (83.0-100.0); Mean Platelet Volume 10.5 fL (9.4-12.4); Monocytes # 1.2 K/mcL (0.0-1.3); Monocytes % 10.8 %; Neutrophils # 8.1 K/mcL (1.6-8.9); Platelet Count 117 K/mcL (140-400); Red Blood Count 3.04 M/mcL (4.19-5.50); Red Cell Distribution Width 13.2 % (11.5-14.5); Segmented Neutrophils % 75.7 %
[2017-09-11 05:57] LABS: Platelet Estimate Slight Decrease (Normal)
[2017-09-11 06:08] LABS: BUN/Creatinine Ratio 26 (6-26); Blood Urea Nitrogen 22 mg/dL (6-20); Calcium 7.5 mg/dL (8.6-10.3); Carbon Dioxide 22 mEq/L (23-29); Chloride 102 mEq/L (98-107); Glucose 148 mg/dL (70-105); Magnesium 1.7 mg/dL (1.6-2.6); Osmolality,Calculated 276 (280-300); Potassium 3.5 mEq/L (3.5-5.1); Sodium 130 mEq/L (136-145); eGFR For African Americans > 60 (> 60); eGFR For Non-African Americans > 60 (> 60)
[2017-09-11] MEDS: 0.9 % Sodium Chloride 1,000 ML IVC SCH ×2 (09:53→23:52)
--- NOTE | 2017-09-11 11:55 | Internal Med Progress Note ---
Date of Encounter: 09/11/17 Time of Encounter: 09:00 - Assessment and plan (1) Sepsis Current Visit: Yes Status: Acute Assessment and plan: Plan as below. Qualifiers: Sepsis type: sepsis due to unspecified organism Qualified Code(s): A41.9 - Sepsis, unspecified organism (2) Infective endocarditis Current Visit: Yes Status: Acute Assessment and plan: We will continue to treat and follow IDs recommendations. Continue cefazolin for now. Repeat blood cultures are positive. Another set has been sent.. PURVI is pending on Wednesday. TTE with no vegetations. The patient continues to have elevated temperatures. WBC count is trending down. Qualifiers: Infective endocarditis organism: bacterial Chronicity: acute Qualified Code(s): I33.0 - Acute and subacute infective endocarditis (3) MSSA bacteremia Current Visit: Yes Status: Acute Assessment and plan: Repeat blood cultures are positive. Another set has been sent. Continue with cefazolin for now. PURVI pending (4) Pulmonary embolism, septic Current Visit: Yes Status: Acute Assessment and plan: Likely secondary to infective endocarditis. Treatment as above. Qualifiers: Chronicity: acute Acute cor pulmonale presence: without acute cor pulmonale Qualified Code(s): I26.90 - Septic pulmonary embolism without acute cor pulmonale (5) History of intravenous drug abuse Current Visit: Yes Status: Acute Assessment and plan: Patient says he was clean for some time however he had a relapse a couple weeks ago as his mom had kicked him out of his house. The patient was counseled. HIV and hepatitis panel pending (6) DVT prophylaxis Current Visit: Yes Status: Acute Assessment and plan: Heparin subcutaneous - Subjective Interval history: Patient was seen and examined. Says he feels better. A PURVI could not be performed since the patient had something to eat yesterday morning and this is pushed on Wednesday. He had a MAXIMUM TEMPERATURE 100.2 last night. Patient admitted with sepsis. Workup showed elevated white count. Patient has been febrile. CT chest shows findings of possibly septic emboli. Blood cultures are positive for MSSA. Patient was on vancomycin and Zosyn which was switched to Ancef per ID. An echo with no vegetations. The patient is also being treated as possible pneumonia although I suspect that this is less likely and his findings are most likely secondary to the septic emboli. - Constitutional Vitals: Temp Pulse Resp BP Pulse Ox 98 F 100 15 128/76 95 09/11/17 11:44 09/11/17 11:44 09/11/17 11:44 09/11/17 11:44 09/11/17 11:44 General appearance: Present: A&O X 3, no acute distress, answers questions appropriately Exam: GEN: NAD CVS: RRR. S1, S2, No m/r/g RESP: CTAB ABD: Soft, NT, ND, +BS EXT: No edema. 2+ DP, No rashes NEURO: Nonfocal Internal Medicine: Result - Labs CBC & Chem 7: 09/11/17 05:32 09/11/17 05:32 Labs: Short CBC 09/11/17 Range/Units 05:32 WBC 10.7 (4.3-11.1) K/mcL Hgb 9.4 L (12.9-16.9) g/dL Hct 27.0 L (37.5-50.1) % Plt Count 117 L (140-400) K/mcL Neutrophils # 8.1 (1.6-8.9) K/mcL BMP 09/11/17 05:32 Sodium 130 L Potassium 3.5 Chloride 102 Carbon Dioxide 22 L BUN 22 H Creatinine 0.86 Glucose 148 H Calcium 7.5 L - VTE Documentation of Mechanical Device: Intermittent pneumatic compression device Consult Discharge Plan - Plan Referrals: Dominga Lopez DO [Resident] - 09/14/17 10:00 am (Please bring your new patient packet filled out that you will receive in the mail. Bring your photo ID, insurance card, and any medications you are on. If you need to cancel , please give a 24 hour notice. Thank you)
[2017-09-12] MEDS: Ketorolac 15 MG/ML VIAL IVP PRN ×4 (00:57→19:54)
[2017-09-12] MEDS: *HR* Heparin 5,000 UNIT/ML VIAL SQ SCH ×2 (06:17→16:46)
[2017-09-12] MEDS: CeFAZolin Premix DUPLEX 2,000 MG/50 ML BAG IVPB SCH ×2 (07:23→15:42)
--- NOTE | 2017-09-12 07:24 | Internal Med Progress Note ---
Date of Encounter: 09/12/17 Time of Encounter: 07:22 - Assessment and plan (1) Sepsis Current Visit: Yes Status: Acute Assessment and plan: Plan as below. Qualifiers: Sepsis type: sepsis due to unspecified organism Qualified Code(s): A41.9 - Sepsis, unspecified organism (2) Infective endocarditis Current Visit: Yes Status: Acute Assessment and plan: We will continue to treat and follow IDs recommendations. Continue cefazolin for now. Repeat blood cultures are positive from 09/09. 09/10 cultures neg to date. PURVI is pending on Wednesday. TTE with no vegetations. The patient continues to have elevated temperatures. WBC count is trending down. Qualifiers: Infective endocarditis organism: bacterial Chronicity: acute Qualified Code(s): I33.0 - Acute and subacute infective endocarditis (3) MSSA bacteremia Current Visit: Yes Status: Acute Assessment and plan: Repeat blood cultures are positive on 09/09. Another set has been sent 09/10 is neg so far. Continue with cefazolin for now. PURVI pending (4) Pulmonary embolism, septic Current Visit: Yes Status: Acute Assessment and plan: Likely secondary to infective endocarditis. Treatment as above. Qualifiers: Chronicity: acute Acute cor pulmonale presence: without acute cor pulmonale Qualified Code(s): I26.90 - Septic pulmonary embolism without acute cor pulmonale (5) History of intravenous drug abuse Current Visit: Yes Status: Acute Assessment and plan: Patient says he was clean for some time however he had a relapse a couple weeks ago as his mom had kicked him out of his house. The patient was counseled. HIV and hepatitis panel pending (6) Hyponatremia Current Visit: Yes Status: Acute Assessment and plan: repeat BMP this morning. start IVF as a trial if still low. (7) DVT prophylaxis Current Visit: Yes Status: Acute Assessment and plan: Heparin subcutaneous - Subjective Interval history: Patient was seen and examined. Tmax is 100.3. A PURVI could not be performed since the patient had something to eat the day it was going to be done. PURVI planned for tomorrow. Patient admitted with sepsis. Workup showed elevated white count. Patient has been febrile. CT chest shows findings of possibly septic emboli. Blood cultures are positive for MSSA. Patient was on vancomycin and Zosyn which was switched to Ancef per ID. An echo with no vegetations. The patient is also being treated as possible pneumonia although I suspect that this is less likely and his findings are most likely secondary to the septic emboli. - Constitutional Vitals: Temp Pulse Resp BP Pulse Ox 99.8 F H 101 15 126/78 94 09/12/17 06:53 09/12/17 06:53 09/12/17 06:53 09/12/17 06:53 09/12/17 06:53 General appearance: Present: A&O X 3, no acute distress, answers questions appropriately Exam: GEN: NAD CVS: RRR. S1, S2, No m/r/g RESP: CTAB ABD: Soft, NT, ND, +BS EXT: No edema. 2+ DP, No rashes NEURO: Nonfocal Internal Medicine: Result - Labs CBC & Chem 7: 09/11/17 05:32 09/11/17 05:32 - VTE Documentation of Mechanical Device: Intermittent pneumatic compression device Consult Discharge Plan - Plan Referrals: Dominga Lopez DO [Resident] - 09/14/17 10:00 am (Please bring your new patient packet filled out that you will receive in the mail. Bring your photo ID, insurance card, and any medications you are on. If you need to cancel , please give a 24 hour notice. Thank you)
[2017-09-12 07:50] LABS: Hematocrit 24.7 % (37.5-50.1); Hemoglobin 8.3 g/dL (12.9-16.9); Mean Corpuscular HGB Conc 33.6 g/dL (31.6-35.5); Mean Corpuscular Hemoglobin 30.9 pg (28.0-33.3); Mean Corpuscular Volume 91.8 fL (83.0-100.0); Mean Platelet Volume 10.3 fL (9.4-12.4); Platelet Count 197 K/mcL (140-400); Red Blood Count 2.69 M/mcL (4.19-5.50); Red Cell Distribution Width 13.5 % (11.5-14.5)
[2017-09-12 07:56] LABS: BUN/Creatinine Ratio 23 (6-26); Blood Urea Nitrogen 18 mg/dL (6-20); Calcium 7.4 mg/dL (8.6-10.3); Carbon Dioxide 24 mEq/L (23-29); Chloride 106 mEq/L (98-107); Glucose 111 mg/dL (70-105); Osmolality,Calculated 277 (280-300); Potassium 4.1 mEq/L (3.5-5.1); Sodium 132 mEq/L (136-145); eGFR For African Americans > 60 (> 60); eGFR For Non-African Americans > 60 (> 60)
[2017-09-12 09:18] LABS: Eosinophils # 0.6 K/mcL (0.0-0.6); Monocytes # 0.6 K/mcL (0.0-1.3); Neutrophils # 11.1 K/mcL (1.6-8.9)
[2017-09-12 09:19] LABS: Platelet Estimate Normal (Normal)
[2017-09-12 09:20] LABS: Toxic Granulation Present (Not Present)
[2017-09-12] MEDS: 0.9 % Sodium Chloride 1,000 ML IVC SCH (13:21)
[2017-09-13] MEDS: CeFAZolin Premix DUPLEX 2,000 MG/50 ML BAG IVPB SCH ×3 (01:39→17:20)
[2017-09-13 01:42] LABS: Acinetobacter baumannii by PCR Not Detected (Not Detect); Candida albicans by PCR Not Detected (Not Detect); Candida glabrata by PCR Not Detected (Not Detect); Candida krusei by PCR Not Detected (Not Detect); Candida parapsilosis by PCR Not Detected (Not Detect); Candida tropicalis by PCR Not Detected (Not Detect); Enterococcus by PCR Not Detected (Not Detect); Escherichia coli by PCR Not Detected (Not Detect); Klebsiella oxytoca by PCR Not Detected (Not Detect); Klebsiella pneumoniae by PCR Not Detected (Not Detect); Pseudomonas aeruginosa by PCR Not Detected (Not Detect); Serratia marcescens by PCR Not Detected (Not Detect); Staphylococcus aureus by PCR ***DETECTED*** (Not Detect); Streptococcus agalactiae(B)PCR Not Detected (Not Detect); Streptococcus by PCR Not Detected (Not Detect); Streptococcus pneumoniae PCR Not Detected (Not Detect); Streptococcus pyogenes (A) PCR Not Detected (Not Detect); blaKPC Carbapenem-Resist Gene Not Detected (Not Detect); mecA Methicillin-Resist Gene Not Detected (Not Detect); vanA/B Vancomycin-Resist Genes Not Detected (Not Detect)
[2017-09-13] MEDS: 0.9 % Sodium Chloride 1,000 ML IVC SCH ×2 (01:47→17:18)
[2017-09-13] MEDS: Ketorolac 15 MG/ML VIAL IVP PRN ×3 (01:50→20:43)
[2017-09-13 05:08] LABS: Basophils % 0.3 %; Eosinophils # 0.3 K/mcL (0.0-0.6); Eosinophils % 1.7 %; Hematocrit 21.9 % (37.5-50.1); Hemoglobin 7.6 g/dL (12.9-16.9); Immature Granulocytes % 5.1 % (0-4); Lymphocytes # 2.7 K/mcL (0.6-4.6); Lymphocytes % 16.9 %; Mean Corpuscular HGB Conc 34.7 g/dL (31.6-35.5); Mean Corpuscular Hemoglobin 31.8 pg (28.0-33.3); Mean Corpuscular Volume 91.6 fL (83.0-100.0); Mean Platelet Volume 9.8 fL (9.4-12.4); Monocytes % 13.7 %; Neutrophils # 9.8 K/mcL (1.6-8.9); Nucleated Red Blood Cells 0.3 /100 WBC (0); Platelet Count 267 K/mcL (140-400); Red Blood Count 2.39 M/mcL (4.19-5.50); Red Cell Distribution Width 13.4 % (11.5-14.5); Segmented Neutrophils % 62.3 %
[2017-09-13 05:18] LABS: Basophils # 0.1 K/mcL (0.0-0.2); Monocytes # 2.2 K/mcL (0.0-1.3)
[2017-09-13 05:26] LABS: BUN/Creatinine Ratio 17 (6-26); Blood Urea Nitrogen 13 mg/dL (6-20); Calcium 7.1 mg/dL (8.6-10.3); Carbon Dioxide 24 mEq/L (23-29); Chloride 103 mEq/L (98-107); Glucose 97 mg/dL (70-105); Osmolality,Calculated 270 (280-300); Potassium 4.3 mEq/L (3.5-5.1); Sodium 130 mEq/L (136-145); eGFR For African Americans > 60 (> 60); eGFR For Non-African Americans > 60 (> 60)
[2017-09-13 05:54] LABS: Platelet Estimate Normal (Normal); Reactive Lymphocytes Present (Not Present)
[2017-09-13] MEDS: *HR* Heparin 5,000 UNIT/ML VIAL SQ SCH ×2 (06:22→17:19)
[2017-09-13] MEDS ORDERED: 0.9 % Sodium Chloride 1,000 ML IVC ONE (07:47)
[2017-09-13] MEDS ORDERED: Aminoglycoside Consult 1 EACH MC ONE (08:00)
--- NOTE | 2017-09-13 08:22 | Internal Med Progress Note ---
Date of Encounter: 09/13/17 Time of Encounter: 08:20 - Assessment and plan (1) Sepsis Current Visit: Yes Status: Acute Assessment and plan: as below Qualifiers: Sepsis type: sepsis due to unspecified organism Qualified Code(s): A41.9 - Sepsis, unspecified organism (2) Infective endocarditis Current Visit: Yes Status: Acute Assessment and plan: We will continue to treat and follow IDs recommendations. Continue cefazolin. Vancomycin re-added. We will discuss with ID. Repeat blood cultures are positive from 09/09 and 09/10 a positive. Repeat blood cultures. PURVI is pending today. TTE with no vegetations. The patient continues to have elevated temperatures. WBC count is trending down. Qualifiers: Infective endocarditis organism: bacterial Chronicity: acute Qualified Code(s): I33.0 - Acute and subacute infective endocarditis (3) MSSA bacteremia Current Visit: Yes Status: Acute Assessment and plan: Repeat blood cultures are positive on 09/09 and 09/10. Continue with cefazolin for now. PURVI pending (4) Pulmonary embolism, septic Current Visit: Yes Status: Acute Assessment and plan: Likely secondary to infective endocarditis. Treatment as above. Qualifiers: Chronicity: acute Acute cor pulmonale presence: without acute cor pulmonale Qualified Code(s): I26.90 - Septic pulmonary embolism without acute cor pulmonale (5) History of intravenous drug abuse Current Visit: Yes Status: Acute Assessment and plan: Patient says he was clean for some time however he had a relapse a couple weeks ago as his mom had kicked him out of his house. The patient was counseled. HIV and hepatitis panel pending (6) Hyponatremia Current Visit: Yes Status: Acute Assessment and plan: Has been hovering around 130 to 132 for the last 3 days. We will continue to monitor. (7) Hepatitis C antibody test positive Current Visit: Yes Status: Acute Assessment and plan: Would recommend referral to GI in the outpatient setting. Check RUQ US. (8) DVT prophylaxis Current Visit: Yes Status: Acute Assessment and plan: Heparin subcutaneous - Subjective Interval history: Patient was seen and examined. Tmax is 100.9. Blood cultures continuously positive. He feels well however. A PURVI could not be performed since the patient had something to eat the day it was going to be done. PURVI planned for today. Patient admitted with sepsis. Workup showed elevated white count. Patient has been febrile. CT chest shows findings of possibly septic emboli. Blood cultures are positive for MSSA. Patient was on vancomycin and Zosyn which was switched to Ancef per ID. An echo with no vegetations. The patient is also being treated as possible pneumonia although I suspect that this is less likely and his findings are most likely secondary to the septic emboli. - Constitutional Vitals: Temp Pulse Resp BP Pulse Ox 99.9 F H 111 16 146/94 93 09/13/17 07:18 09/13/17 07:18 09/13/17 07:18 09/13/17 07:18 09/13/17 07:18 General appearance: Present: A&O X 3, no acute distress, answers questions appropriately Exam: GEN: NAD CVS: RRR. S1, S2, No m/r/g RESP: CTAB ABD: Soft, NT, ND, +BS EXT: No edema. 2+ DP, No rashes NEURO: Nonfocal Internal Medicine: Result - Labs CBC & Chem 7: 09/13/17 04:33 09/13/17 16:18 Labs: Short CBC 09/12/17 09/13/17 Range/Units 07:06 04:33 WBC 14.2 H 15.7 H (4.3-11.1) K/mcL Hgb 8.3 L 7.6 L (12.9-16.9) g/dL Hct 24.7 L 21.9 L (37.5-50.1) % Plt Count 197 D 267 (140-400) K/mcL Neutrophils # 11.1 H 9.8 H (1.6-8.9) K/mcL BMP 09/13/17 04:33 Sodium 130 L Potassium 4.3 Chloride 103 Carbon Dioxide 24 BUN 13 Creatinine 0.75 Glucose 97 Calcium 7.1 L - Impressions Impressions Chest CT 09/09/17 10:30 IMPRESSION: 1. Findings are consistent with septic pulmonary emboli as well as more diffuse consolidation in both lower lobes consistent with pneumonia. Small bilateral effusions are present. 2. Emphysema at the lung apices, greater than expected for age. D/ / 09/09/2017 11:29:21 Ted Valadez MD / susan Interpreting Provider: Ted Valadez MD - VTE Documentation of Mechanical Device: Intermittent pneumatic compression device Consult Discharge Plan - Plan Referrals: Dominga Lopez DO [Resident] - 09/17/17 10:00 am (Please bring your new patient packet filled out that you will receive in the mail. Bring your photo ID, insurance card, and any medications you are on. If you need to cancel , please give a 24 hour notice. Thank you)
[2017-09-13 10:29] LABS: Hepatitis A Antibody IgM Nonreactive (Nonreactive); Hepatitis B Core IgM Nonreactive (Nonreactive); Hepatitis B Surface Antigen Nonreactive (Nonreactive)
[2017-09-13 12:10] LABS: Hepatitis C Virus Antibody Reactive (Nonreactive)
--- NOTE | 2017-09-13 13:20 | Infectious Disease Progress No ---
Date of Encounter: 09/13/17 Time of Encounter: 10:20 - Assessment and Plan (1) Severe sepsis Current Visit: Yes Status: Acute 3 SIRS criteria still present: tachycardia, fever, and leukocytosis secondary to MSSA bacteremia Slight elevation in serum troponin, septic emboli present, possible septic joint Seen by orthopedic surgery, they suspect that the shoulder pain is due to cardio and/or pulmonary process (2) MSSA bacteremia Current Visit: Yes Status: Acute Blood cultures: 09/08: 2/2 positive for MSSA 09/09:2/2 positive for MSSA 09/10: 1/2 positive for MSSA PCR serology positive for Staph aureus without positivity for MecA or Shashi Complicated by the presence of septic emboli Ortho eveluated shoulder and do not feel that it is septic 1 Major and 3 minor sky criteria met bacteremia of staphylcoccus aureus history of IV drug use septic emboli present Continued fever Patient missed PURVI today, will have done tomorrow Will repeat blood cultures Start cefazolin 2g Q8hr Repeat CT of chest Stop vancomycin (3) History of intravenous drug abuse Current Visit: Yes Status: Acute After asking the patient again today, he reports that he recently "fell off the wagon" and reports IV drug usage a couple weeks ago after being clean for several months Positive for Hep C antibodies HIV screen pending (4) Hepatitis C antibody positive in blood Current Visit: Yes Status: Acute Hepatitis Panel positive for Hepatitis C antibodies will obtain LFTs and INR - Subjective Interval history: Patient resting comfortably in bed when seen this morning. He reports having continued fevers, but denies diaphoresis and chills. He reports that he is hungry and has an appetite, but is NPO for a PURVI later today. When asked about the last usage of IV drugs, he states that he relapsed a couple weeks ago and used IV drugs again after being clean for several months. He was started on Vancomycin early this morning by the night hospitalist. He has continued to be febrile, have leukocytosis, and tachycardia. Infect Dis PN-Objective Data - Labs CBC & Chem 7: 09/13/17 04:33 09/13/17 16:18 Labs: Laboratory Results - last 24 hr 09/10/17 09/12/17 09/13/17 16:37 09:45 04:33 WBC 15.7 H RBC 2.39 L Hgb 7.6 L Hct 21.9 L MCV 91.6 MCH 31.8 MCHC 34.7 RDW 13.4 Plt Count 267 MPV 9.8 Immature Gran % 5.1 H Seg Neutrophils % 62.3 Lymphocytes % 16.9 Monocytes % 13.7 Eosinophils % 1.7 Basophils % 0.3 Neutrophils # 9.8 H Lymphocytes # 2.7 Monocytes # 2.2 H Eosinophils # 0.3 Basophils # 0.1 Nucleated RBCs/100 WBC 0.3 H Reactive Lymphocytes Present A Platelet Estimate Normal Sodium Potassium Chloride Carbon Dioxide BUN Creatinine Est GFR ( Amer) Est GFR (Non-Af Amer) BUN/Creatinine Ratio Glucose POC Glucose Calculated Osmolality Lactic Acid Calcium A. baumannii (PCR) Not Detected Dariela albicans (PCR) Not Detected C. glabrata (PCR) Not Detected C. krusei (PCR) Not Detected C. parapsilosis (PCR) Not Detected C. tropicalis (PCR) Not Detected Enterobacteriac sp PCR Not Detected E. cloacae complex PCR Not Detected Enterococcus sp PCR Not Detected E. coli (PCR) Not Detected H. influenzae (PCR) Not Detected Hepatitis A IgM Ab Nonreactive Hep Bs Antigen Nonreactive Hep B Core IgM Ab Nonreactive Hepatitis C Ab Screen Reactive H Klebsiella oxytoca PCR Not Detected Klebsiella pneumoniae Not Detected List. monocytogenes PCR Not Detected N. meningitidis (PCR) Not Detected Proteus species (PCR) Not Detected Serratia marcescens PCR Not Detected Staphylococcus sp PCR DETECTED A Staph aureus (PCR) DETECTED A mecA-Methicil Res Gene Not Detected Streptococcus sp PCR Not Detected Group A Strep DNA Not Detected Group B Strep (PCR) Not Detected Strep pneumoniae (PCR) Not Detected P. aeruginosa (PCR) Not Detected Shashi/B-Vanco Res Genes Not Detected KPC (blaKPC) Detect PCR Not Detected 09/13/17 09/13/17 09/13/17 04:33 05:18 08:26 WBC RBC Hgb Hct MCV MCH MCHC RDW Plt Count MPV Immature Gran % Seg Neutrophils % Lymphocytes % Monocytes % Eosinophils % Basophils % Neutrophils # Lymphocytes # Monocytes # Eosinophils # Basophils # Nucleated RBCs/100 WBC Reactive Lymphocytes Platelet Estimate Sodium 130 L Potassium 4.3 Chloride 103 Carbon Dioxide 24 BUN 13 Creatinine 0.75 Est GFR ( Amer) > 60 Est GFR (Non-Af Amer) > 60 BUN/Creatinine Ratio 17 Glucose 97 POC Glucose 108 H Calculated Osmolality 270 L Lactic Acid 0.8 Calcium 7.1 L A. baumannii (PCR) Dariela albicans (PCR) C. glabrata (PCR) C. krusei (PCR) C. parapsilosis (PCR) C. tropicalis (PCR) Enterobacteriac sp PCR E. cloacae complex PCR Enterococcus sp PCR E. coli (PCR) H. influenzae (PCR) Hepatitis A IgM Ab Hep Bs Antigen Hep B Core IgM Ab Hepatitis C Ab Screen Klebsiella oxytoca PCR Klebsiella pneumoniae List. monocytogenes PCR N. meningitidis (PCR) Proteus species (PCR) Serratia marcescens PCR Staphylococcus sp PCR Staph aureus (PCR) mecA-Methicil Res Gene Streptococcus sp PCR Group A Strep DNA Group B Strep (PCR) Strep pneumoniae (PCR) P. aeruginosa (PCR) Shashi/B-Vanco Res Genes KPC (blaKPC) Detect PCR Cultures: Cultures 09/10/17 16:37 Blood Culture - Final Peripheral Venipuncture Staphylococcus aureus 09/10/17 16:37 Blood Culture - Preliminary Peripheral Venipuncture No growth. 09/09/17 13:12 Blood Culture - Final Peripheral Venipuncture Staphylococcus aureus 09/09/17 13:12 Blood Culture - Final Peripheral Venipuncture Staphylococcus aureus Serology 09/12/17 09/10/17 Range/Units 09:45 16:37 A. baumannii (PCR) Not Detected (Not Detect) Dariela albicans (PCR) Not Detected (Not Detect) C. glabrata (PCR) Not Detected (Not Detect) C. krusei (PCR) Not Detected (Not Detect) C. parapsilosis (PCR) Not Detected (Not Detect) C. tropicalis (PCR) Not Detected (Not Detect) Enterobacteriac sp PCR Not Detected (Not Detect) E. cloacae complex PCR Not Detected (Not Detect) Enterococcus sp PCR Not Detected (Not Detect) E. coli (PCR) Not Detected (Not Detect) H. influenzae (PCR) Not Detected (Not Detect) Hepatitis A IgM Ab Nonreactive (Nonreactive) Hep Bs Antigen Nonreactive (Nonreactive) Hep B Core IgM Ab Nonreactive (Nonreactive) Hepatitis C Ab Screen Reactive H (Nonreactive) Klebsiella oxytoca PCR Not Detected (Not Detect) Klebsiella pneumoniae Not Detected (Not Detect) List. monocytogenes PCR Not Detected (Not Detect) N. meningitidis (PCR) Not Detected (Not Detect) Proteus species (PCR) Not Detected (Not Detect) Serratia marcescens PCR Not Detected (Not Detect) Staphylococcus sp PCR DETECTED A (Not Detect) Staph aureus (PCR) DETECTED A (Not Detect) mecA-Methicil Res Gene Not Detected (Not Detect) Streptococcus sp PCR Not Detected (Not Detect) Group A Strep DNA Not Detected (Not Detect) Group B Strep (PCR) Not Detected (Not Detect) Strep pneumoniae (PCR) Not Detected (Not Detect) P. aeruginosa (PCR) Not Detected (Not Detect) Shashi/B-Vanco Res Genes Not Detected (Not Detect) KPC (blaKPC) Detect PCR Not Detected (Not Detect) - Impressions Impressions Chest CT 09/09/17 10:30 IMPRESSION: 1. Findings are consistent with septic pulmonary emboli as well as more diffuse consolidation in both lower lobes consistent with pneumonia. Small bilateral effusions are present. 2. Emphysema at the lung apices, greater than expected for age. D/ / 09/09/2017 11:29:21 Ted Valadez MD / susan Interpreting Provider: Ted Valadez MD Exam - Constitutional Vitals: Temp Pulse Resp BP Pulse Ox 99.0 F 107 14 137/82 94 09/13/17 10:19 09/13/17 10:19 09/13/17 10:19 09/13/17 10:19 09/13/17 10:19 - Additional findings Additional findings: General: Cooperative, pleasant, no acute distress, alert and oriented 3, answers questions appropriately HEENT: Normocephalic, atraumatic, Conjunctiva pink, sclera anicteric,oral mucosa moist, no orophargeal erythema or exudates Respiratory: No accessory muscle usage, clear to auscultation bilaterally, no wheezes/rhonchi/rales appreciated Cardiovascular: Tachycardia, S1 and S2 present, no murmurs/rubs/gallops/clicks appreciated GI/abdominal: Nondistended, nontender, soft, normal bowel sounds, no peritoneal signs Extremities: No calf tenderness, no pedal edema appreciated, warm, lower extremity pulses palpable and symmetrical, increased warmth and tenderness to palpation in left shoulder, no swelling identified Neurological: Alert and oriented 3, no facial droop, no focal deficits Skin: Dry, intact, normal color, warm - VTE Documentation of Mechanical Device: Intermittent pneumatic compression device Consult Discharge Plan - Plan Referrals: Dominga Lopez DO [Resident] - 09/17/17 10:00 am (Please bring your new patient packet filled out that you will receive in the mail. Bring your photo ID, insurance card, and any medications you are on. If you need to cancel , please give a 24 hour notice. Thank you) - Attending Attestation I examined this patient and my medical decision-making was reviewed with the Resident Physician. I agree with the documented findings, disposition and treatment plan as described except to the extent set forth below. Patient is aware of his hepatitis C diagnosis now. I discussed that with him at length and he described what are the clinical picture and possible treatment in the future.
--- NOTE | 2017-09-13 16:59 | Event Note ---
Date of Encounter: 09/13/17 Time of Encounter: 16:58 Not sure what exactly happened. PURVI was not done today. I spoke to his nurse who assured me that it is scheduled for tomorrow.
[2017-09-13 17:05] LABS: Alanine Aminotransferase 23 Units/L (7-52); Albumin 1.9 g/dL (3.5-5.7); Albumin/Globulin Ratio 0.6 (1.1-2.2); Alkaline Phosphatase 87 Units/L (34-104); Aspartate Amino Transferase 52 Units/L (13-39); BUN/Creatinine Ratio 17 (6-26); Bilirubin,Total 0.4 mg/dL (0.3-1.0); Blood Urea Nitrogen 11 mg/dL (6-20); Calcium 7.3 mg/dL (8.6-10.3); Carbon Dioxide 23 mEq/L (23-29); Chloride 104 mEq/L (98-107); Glucose 109 mg/dL (70-105); Osmolality,Calculated 274 (280-300); Potassium 4.1 mEq/L (3.5-5.1); Sodium 132 mEq/L (136-145); Total Protein 4.9 g/dL (6.4-8.9); eGFR For African Americans > 60 (> 60); eGFR For Non-African Americans > 60 (> 60)
[2017-09-14] MEDS: CeFAZolin Premix DUPLEX 2,000 MG/50 ML BAG IVPB SCH ×3 (01:23→15:53)
[2017-09-14] MEDS: Ketorolac 15 MG/ML VIAL IVP PRN (03:09)
[2017-09-14] MEDS: Acetaminophen 325 MG TABLET PO PRN ×2 (03:42→22:25)
[2017-09-14] MEDS: *HR* Heparin 5,000 UNIT/ML VIAL SQ SCH ×2 (05:46→17:34)
[2017-09-14] MEDS ORDERED: Lidocaine Viscous Oral Soln 15 ML SOLUTION MM PRN (07:46)
[2017-09-14] MEDS ORDERED: Tetracaine/Benzocaine/Butamben 200MG/SPRAY (100SPY/BOT) MM ONE (07:47)
[2017-09-14] MEDS ORDERED: 0.9 % Sodium Chloride 500 ML IVC ONE (07:47)
[2017-09-14] MEDS ORDERED: *HR* Midazolam HCl 2 MG/2 ML VIAL IVP PRN (07:47)
[2017-09-14] MEDS ORDERED: *HR* Midazolam HCl 5 MG/5 ML VIAL IVP ONE ×3 (08:19→08:21)
[2017-09-14] MEDS: *HR* FentaNYL (PF) 100 MCG/2 ML VIAL IVP PRN ×4 (08:35→08:55)
[2017-09-14] MEDS: *HR* Midazolam HCl 5 MG/5 ML VIAL IVP ONE ×2 (08:35→08:55)
--- NOTE | 2017-09-14 09:54 | Infectious Disease Progress No ---
Date of Encounter: 09/14/17 Time of Encounter: 07:30 - Assessment and Plan (1) Severe sepsis Status: Acute 3 SIRS criteria still present: tachycardia, fever, and leukocytosis secondary to MSSA bacteremia and endocarditis seen on PURVI Slight elevation in serum troponin, septic emboli present, possible septic joint Seen by orthopedic surgery, they suspect that the shoulder pain is due to cardio and/or pulmonary process (2) Infective endocarditis Status: Acute Endocarditis seen on PURVI performed today with 3 vegetations on the tricuspid, aortic, pulmonic valves: Vegetation on tricuspid measuring 1.1 x 1.1 cm, vegetation on aortic valve measuring 1 x 1 cm, and vegetation on pulmonic valve measuring 0.7 x 0.7 cm 2 major criteria and 3 minor criteria met Persistent bacteremia with MSSA Patient has been on cefazolin for 6 days Patient will require surgical evaluation of valvular disease given the size of the vegetation seen Qualifiers: Infective endocarditis organism: bacterial Chronicity: acute Qualified Code(s): I33.0 - Acute and subacute infective endocarditis (3) MSSA bacteremia Status: Acute Blood cultures: 09/08: 2/2 positive for MSSA 09/09:2/2 positive for MSSA 16: 1/2 positive for MSSA 09/13: 2/2 negative for growth (preliminary) PCR serology positive for Staph aureus without positivity for MecA or Shashi Complicated by the presence of septic emboli Ortho eveluated shoulder and do not feel that it is septic PRUVI performed today showed 3 vegetations the largest measuring 1.1 x 1.1 cm on the tricuspid valve consistent with vegetation 2 Major and 3 minor sky criteria met bacteremia of staphylcoccus aureus Vegetations seen on PURVI history of IV drug use septic emboli present Continued fever Repeat CT of chest showed interval worsening of septic emboli Continue cefazolin 2 g Patient will require surgical evaluation and potential correction (4) History of intravenous drug abuse Status: Acute After asking the patient again today, he reports that he recently "fell off the wagon" and reports IV drug usage a couple weeks ago after being clean for several months Positive for Hep C antibodies HIV screen pending (5) Hepatitis C antibody positive in blood Status: Acute Hepatitis Panel positive for Hepatitis C antibodies - Subjective Interval history: Patient reports mild improvement and reports only one episode of fever. He does state that he has had some diaphoresis. He does report continued pain in his left shoulder, but this is improved as well. He denies having nausea, vomiting, abdominal pain. Patient had PURVI today which showed digitations on the tricuspid, aortic, and pulmonic valves. Infect Dis PN-Objective Data - Labs CBC & Chem 7: 09/15/17 15:50 09/15/17 06:39 Labs: Laboratory Results - last 24 hr 09/12/17 09/13/17 09/13/17 09:45 11:11 16:18 Sodium 132 L Potassium 4.1 Chloride 104 Carbon Dioxide 23 BUN 11 Creatinine 0.66 L Est GFR ( Amer) > 60 Est GFR (Non-Af Amer) > 60 BUN/Creatinine Ratio 17 Glucose 109 H POC Glucose 88 Calculated Osmolality 274 L Calcium 7.3 L Total Bilirubin 0.4 AST 52 H ALT 23 Alkaline Phosphatase 87 Serum Total Protein 4.9 L Albumin 1.9 L Globulin 3.0 Albumin/Globulin Ratio 0.6 L Hepatitis A IgM Ab Nonreactive Hep Bs Antigen Nonreactive Hep B Core IgM Ab Nonreactive Hepatitis C Ab Screen Reactive H Cultures: Cultures 09/13/17 08:26 Blood Culture - Preliminary Peripheral Venipuncture No growth. 09/13/17 08:26 Blood Culture - Preliminary Peripheral Venipuncture No growth. 09/10/17 16:37 Blood Culture - Final Peripheral Venipuncture Staphylococcus aureus 09/10/17 16:37 Blood Culture - Preliminary Peripheral Venipuncture No growth. 09/09/17 13:12 Blood Culture - Final Peripheral Venipuncture Staphylococcus aureus 09/09/17 13:12 Blood Culture - Final Peripheral Venipuncture Staphylococcus aureus Serology 09/12/17 09/10/17 Range/Units 09:45 16:37 A. baumannii (PCR) Not Detected (Not Detect) Dariela albicans (PCR) Not Detected (Not Detect) C. glabrata (PCR) Not Detected (Not Detect) C. krusei (PCR) Not Detected (Not Detect) C. parapsilosis (PCR) Not Detected (Not Detect) C. tropicalis (PCR) Not Detected (Not Detect) Enterobacteriac sp PCR Not Detected (Not Detect) E. cloacae complex PCR Not Detected (Not Detect) Enterococcus sp PCR Not Detected (Not Detect) E. coli (PCR) Not Detected (Not Detect) H. influenzae (PCR) Not Detected (Not Detect) Hepatitis A IgM Ab Nonreactive (Nonreactive) Hep Bs Antigen Nonreactive (Nonreactive) Hep B Core IgM Ab Nonreactive (Nonreactive) Hepatitis C Ab Screen Reactive H (Nonreactive) Klebsiella oxytoca PCR Not Detected (Not Detect) Klebsiella pneumoniae Not Detected (Not Detect) List. monocytogenes PCR Not Detected (Not Detect) N. meningitidis (PCR) Not Detected (Not Detect) Proteus species (PCR) Not Detected (Not Detect) Serratia marcescens PCR Not Detected (Not Detect) Staphylococcus sp PCR DETECTED A (Not Detect) Staph aureus (PCR) DETECTED A (Not Detect) mecA-Methicil Res Gene Not Detected (Not Detect) Streptococcus sp PCR Not Detected (Not Detect) Group A Strep DNA Not Detected (Not Detect) Group B Strep (PCR) Not Detected (Not Detect) Strep pneumoniae (PCR) Not Detected (Not Detect) P. aeruginosa (PCR) Not Detected (Not Detect) Shashi/B-Vanco Res Genes Not Detected (Not Detect) KPC (blaKPC) Detect PCR Not Detected (Not Detect) - Impressions Impressions Chest CT 09/13/17 19:11 IMPRESSION: Interval worsening of septic emboli, bibasilar consolidation and bilateral pleural effusion compared to study performed 4 days ago. D/ / Donny Acharya / Donny Acharya Interpreting Provider: Donny Acharya Exam - Constitutional Vitals: Temp Pulse Resp BP Pulse Ox 97.9 F 97 18 142/87 93 09/14/17 08:10 09/14/17 08:10 09/14/17 08:10 09/14/17 08:10 09/14/17 08:10 - Additional findings Additional findings: General: Cooperative, pleasant, no acute distress, alert and oriented 3, answers questions appropriately HEENT: Normocephalic, atraumatic, Conjunctiva pink, sclera anicteric Respiratory: No accessory muscle usage, slight bibasilar rales on auscultation Cardiovascular: Tachycardia, S1 and S2 present, no murmurs/rubs/gallops/clicks appreciated GI/abdominal: Nondistended, nontender, soft, normal bowel sounds, no peritoneal signs Extremities: No calf tenderness, no pedal edema appreciated, warm, lower extremity pulses palpable and symmetrical, increased warmth and tenderness to palpation in left shoulder, no swelling identified Neurological: Alert and oriented 3, no facial droop, no focal deficits Skin: Slightly moist, intact, normal color, warm - VTE Documentation of Mechanical Device: Intermittent pneumatic compression device Consult Discharge Plan - Plan Instructions: Pulmonary Embolism (DC), Sepsis (DC), Anemia (GEN), Pneumonia (DC ) Additional Instructions: Follow-up appointments: If there is not an appointment listed below, please call your physician and schedule a follow-up appointment. If you have congestive heart failure and your symptoms return, make an appointment with your physician. Medication List: Carry an up to date list of medications you are taking at all time. We have given you an updated medication list including any new medications that you have been prescribed. Please provide that list to your primary provider Symptoms: If your condition changes or you experience any of the following symptoms, notify your physician immediately: Unusual or worsening pain, fever, persistent nausea and vomiting, bleeding, increase in swelling (especially in your legs), sudden weight gain, extreme dizziness, chest pain, increased drainage or redness from a wound or incision. Go to the emergency department if you experience a problem with breathing. Weights: If you have a history of swelling or shortness of breath, weigh yourself daily and notify your physician if you have a weight gain of two or more pounds in one day or 5 or more pounds in a week. If you experience any of the warning signs for stroke: Sudden numbness or weakness of the face, arm or leg; especially on one side of the body, sudden confusion, trouble speaking or understanding, sudden trouble seeing in one or both eyes, sudden trouble walking, dizziness, loss of balance or coordination, sudden sever headache with no cause; Call 911 or go to the emergency room. Stroke is a medical emergency. Some risk factors for stroke: Age, cigarette smoking, diabetes, excessive alcohol consumption, family history , high blood pressure, overweight, physical inactivity, prior stroke, heart attack, diagnosis of carotid artery stenosis or other artery disease. If you smoke, STOP: Smoking or tobacco use significantly increases your risk of heart and lung disease. Your chance of disease greatly increases if you continue to smoke. For more information, call the [facility] tobacco quit line for smoking cessation QUIT-NOW ( ) Referrals: Dominga Lopez, DO [Resident] - (Please bring your new patient packet filled out that you will receive in the mail. Bring your photo ID, insurance card, and any medications you are on. If you need to cancel, please give a 24 hour notice. Thank you) - Attending Attestation I examined this patient and my medical decision-making was reviewed with the Resident Physician. I agree with the documented findings, disposition and treatment plan as described except to the extent set forth below.
[2017-09-14 10:26] LABS: INR 1.3; Prothrombin Time 13.9 Seconds (9.4-12.1)
[2017-09-14 10:58] LABS: Hematocrit 26.3 % (37.5-50.1); Hemoglobin 8.8 g/dL (12.9-16.9); Mean Corpuscular HGB Conc 33.5 g/dL (31.6-35.5); Mean Corpuscular Hemoglobin 31.2 pg (28.0-33.3); Mean Corpuscular Volume 93.3 fL (83.0-100.0); Mean Platelet Volume 9.2 fL (9.4-12.4); Platelet Count 410 K/mcL (140-400); Red Blood Count 2.82 M/mcL (4.19-5.50); Red Cell Distribution Width 13.8 % (11.5-14.5)
[2017-09-14] MEDS: 0.9 % Sodium Chloride 1,000 ML IVC SCH (11:09)
[2017-09-14] MEDS: traMADol 50 MG TABLET PO PRN ×2 (11:11→17:44)
[2017-09-14 11:56] LABS: Eosinophils # 0.4 K/mcL (0.0-0.6); Lymphocytes # 2.5 K/mcL (0.6-4.6); Monocytes # 1.4 K/mcL (0.0-1.3); Neutrophils # 13.4 K/mcL (1.6-8.9); Platelet Estimate Increased (Normal)
--- NOTE | 2017-09-14 14:34 | Discharge Summary ---
<Christiano Mtz - Last Filed: 09/14/17 17:27> Orders not resulted at time of discharge: Pending orders 09/09/17 11:45 Consult to Infectious Diseases [CONS] Routine 09/09/17 17:46 Consult to Orthopedic Surgery [CONS] Routine 09/10/17 16:37 Culture,Blood [BC] Stat 09/13/17 08:26 Culture,Blood [BC] Stat Date of Encounter: 09/14/17 Time of Encounter: 01:20 - Discharge Diagnosis (1) Severe sepsis Priority: Primary Status: Acute Comments: 3 SIRS criteria still present: tachycardia, fever, and leukocytosis Secondary to MSSA bacteremia and endocarditis seen on PURVI Slight elevation in serum troponin, septic emboli present, less likely septic joint as evaluated by ortho. Seen by orthopedic surgery, they suspect that the shoulder pain is due to cardio and/or pulmonary process (2) Infective endocarditis Priority: Secondary Status: Acute Comments: Endocarditis seen on PURVI performed today with 3 vegetations on the tricuspid, aortic, pulmonic valves: Vegetation on tricuspid measuring 1.1 x 1.1 cm, vegetation on aortic valve measuring 1 x 1 cm, and vegetation on pulmonic valve measuring 0.7 x 0.7 cm 2 major criteria and 3 minor criteria met Persistent bacteremia with MSSA Patient has been on cefazolin for 6 days Patient will require surgical evaluation of valvular disease given the size of the vegetation seen Qualifiers: Infective endocarditis organism: bacterial Chronicity: acute Qualified Code(s): I33.0 - Acute and subacute infective endocarditis (3) MSSA bacteremia Priority: Secondary Status: Acute Comments: Blood cultures: 09/08: 2/2 positive for MSSA 09/09:2/2 positive for MSSA 09/10: 1/2 positive for MSSA 09/13: 2/2 negative for growth (preliminary) PCR serology positive for Staph aureus without positivity for MecA or Shashi Repeat CT of chest showed interval worsening of septic emboli PURVI performed today showed 3 vegetations the largest measuring 1.1 x 1.1 cm on the tricuspid valve consistent with vegetation 2 Major and 3 minor sky criteria met -bacteremia of staphylcoccus aureus -Vegetations seen on PURVI -history of IV drug use -septic emboli present -Continued fever Per ID's recommendation, continue cefazolin 2 g. Patient will require surgical evaluation and potential correction-transfer orders for [facility] placed, however we will continue current POC pending available bed for patient's transfer. (4) Pulmonary embolism, septic Priority: Secondary Status: Acute Comments: Likely secondary to infective endocarditis. Complete treatment as above. Qualifiers: Chronicity: acute Acute cor pulmonale presence: without acute cor pulmonale Qualified Code(s): I26.90 - Septic pulmonary embolism without acute cor pulmonale (5) Pleural effusion associated with pulmonary infection Priority: Secondary Status: Acute Comments: Worsening bilateral consolidation and effusions bilaterally. IR contacted for possible chest tube. If patient not transferred by tomorrow AM, plan for consult to IR for right lung chest tube. Patient is not currently on supplemental oxygen. (6) History of intravenous drug abuse Priority: Secondary Status: Acute Comments: Patient admits to relapse of IV drug use approx 1 week ago after sobriety for 5 months. Positive for Hep C antibodies HIV screen pending (7) Hyponatremia Priority: Secondary Status: Acute Comments: Continues to hover around 130 to 132. We will continue to monitor. (8) Hepatitis C antibody positive in blood Priority: Secondary Status: Acute Comments: Hepatitis Panel positive for Hepatitis C antibodies (9) DVT prophylaxis Priority: Secondary Status: Acute Comments: SQ heparin Hospital course: Mr. Reynoso is a 37 year old male with Hx of IVDU presented for SOB that started on 09/08/17, admitted on 09/09/17. Initial CXR showed bilateral lower pneumonia and nodule; initial CT on 09/19/17 showing septic PE with bilateral pneumonia, small effusions, and emphysema. Patient initially requiring supplemental oxygen, though currently not on supplemental O2. Continues to have intermittent fevers. Found to have MSSA bacteremia with cultures, most recent cultures have been negative as of 09/13/17. Repeat CT chest on 09/13/17 showing worsening septic emboli and pulmonary effusions, considering placing chest tube. Endocarditis seen on PURVI performed 09/14/17 with 3 vegetations on the tricuspid, aortic, pulmonic valves: Vegetation on tricuspid measuring 1.1 x 1.1 cm, vegetation on aortic valve measuring 1 x 1 cm, and vegetation on pulmonic valve measuring 0.7 x 0.7 cm. Upon initial admission patient was started on Vancomycin and Zosyn, Infectious Disease consulted, antibiotics switched to Ancef (day 4). Hepatitis C positive, pending labs for HIV testing. Planning for transfer as patient will require surgical evaluation for potential intervention. Discharge discussed with: patient - Time Spent with Patient Total time spent providing and/or coordinating discharge services: - Discharge Medications Home Medications: No Known Home Drugs 09/09/17 [History] Allergies/Adverse Reactions: 3 Allergy/AdvReac Type Severity Reaction Status Date / Time No Known Allergies Allergy Verified 09/09/17 08:18 Date of admission: 09/09/17 01:20 Primary care physician: PCP NONE Consults: 09/09/17 11:45 Consult to Infectious Diseases [CONS] Routine Consulting Provider: Infectious Disease [place] Reason for Consult: bacteremia/septic emboli/suspected endocardidits Call Completed: No 09/09/17 17:46 Consult to Orthopedic Surgery [CONS] Routine Consulting Provider: Guido Mcknight Reason for Consult: Staphylcoccus bacteremia. Painful left shoulder. Concern for potential septic arthritis Call Completed: Yes Discharging clinician: Lavell Murray Anticipated date of discharge: 09/14/17 - Constitutional Vitals: Temp Pulse Resp BP Pulse Ox 97.9 F 97 18 142/87 93 09/14/17 08:10 09/14/17 08:10 09/14/17 08:10 09/14/17 08:10 09/14/17 08:10 General appearance: Present: cooperative, A&O X 3, no acute distress, answers questions appropriately - Head Head exam: Present: atraumatic, normocephalic - Eye Eye exam: Present: conjuntiva pink, sclera anicteric - Neck Neck exam general surgery: Present: full ROM, supple, trachea midline - Respiratory Respiratory exam: Present: decreased breath sounds. Absent: accessory muscle use, rhonchi, wheezes - Cardiovascular Cardiovascular exam: Present: +S1, +S2, tachycardia. Absent: diastolic murmur, gallop, rubs, systolic murmur - GI/Abdominal GI/Abdominal exam: Present: soft. Absent: distended, tenderness - Extremities Exam Extremities exam: Absent: pedal edema - Neurological Exam Neurological exam: Present: alert, oriented X3, no focal deficits. Absent: speech deficit Additional comments: fatigued, but easily arousable. - Skin Skin exam: Present: dry, intact - Patient Status Disposition: Transfer Short-Term Hosp Condition: Good Functional capacity at discharge: independent ambulation Overall status at discharge: patient is not back to baseline - Discharge Instructions Follow Up With: Dominga Lopez DO [Resident] - (Please bring your new patient packet filled out that you will receive in the mail. Bring your photo ID, insurance card, and any medications you are on. If you need to cancel, please give a 24 hour notice. Thank you) - VTE Documentation of Mechanical Device: Intermittent pneumatic compression device <Lavell Murray - Last Filed: 09/14/17 19:09> Orders not resulted at time of discharge: Pending orders 09/10/17 16:37 Culture,Blood [BC] Stat 09/13/17 08:26 Culture,Blood [BC] Stat 09/14/17 IR thoracentesis w tube [IR] Routine IR us guide needle place [IR] Routine Date of Encounter: 09/14/17 - Discharge Diagnosis (1) Sepsis Priority: Primary Status: Acute Qualifiers: Sepsis type: methicillin susceptible Staphylococcus aureus Qualified Code(s ): A41.01 - Sepsis due to Methicillin susceptible Staphylococcus aureus (2) MSSA bacteremia Status: Acute (3) Pulmonary embolism, septic Status: Acute Qualifiers: Chronicity: acute Acute cor pulmonale presence: without acute cor pulmonale Qualified Code(s): I26.90 - Septic pulmonary embolism without acute cor pulmonale (4) Infective endocarditis Status: Acute Qualifiers: Infective endocarditis organism: bacterial Chronicity: acute Qualified Code(s): I33.0 - Acute and subacute infective endocarditis (5) Pleural effusion associated with pulmonary infection Status: Acute (6) Hepatitis C Priority: Secondary Status: Chronic Qualifiers: Viral hepatitis chronicity: chronic Hepatic coma status: without hepatic coma Qualified Code(s): B18.2 - Chronic viral hepatitis C (7) Tobacco abuse Priority: Secondary Status: Chronic Hospital course: Mr. Reynoso is a 37 year old male - Time Spent with Patient Total time spent providing and/or coordinating discharge services: Date of admission: 09/09/17 01:20 Primary care physician: PCP NONE Consults: 09/09/17 11:45 Consult to Infectious Diseases [CONS] Routine Consulting Provider: Infectious Disease [place] Reason for Consult: bacteremia/septic emboli/suspected endocardidits Call Completed: No 09/09/17 17:46 Consult to Orthopedic Surgery [CONS] Routine Consulting Provider: Guido Mcknight Reason for Consult: Staphylcoccus bacteremia. Painful left shoulder. Concern for potential septic arthritis Call Completed: Yes - Constitutional Vitals: Temp Pulse Resp BP Pulse Ox 98.9 F 115 20 133/78 90 09/14/17 15:31 09/14/17 15:31 09/14/17 15:31 09/14/17 15:31 09/14/17 15:31 - Attending Attestation I examined this patient and my medical decision-making was reviewed with the Resident Physician on 09/14/17. I agree with the documented findings, disposition and treatment plan as described except to the extent set forth below. Mr Reynoso has been admitted for nausea and vomiting and found to have bilateral septic pulmonary emboli and endocarditis. He is to be transferred to [place] for further management. Exam Alert Moderate distress Heart reg with murmur Lungs with rales Abd soft I/P 1. MSSA bacteremia 2. Endocarditis D/C to [place]
[2017-09-14] MEDS: *HR* HYDROcodone/Acet 5/325 mg TABLET PO PRN ×2 (15:53→19:53)
--- NOTE | 2017-09-14 19:59 | Event Note ---
Date of Encounter: 09/14/17 Time of Encounter: 19:58 [facility] transfer center and accepting hospitalist at [facility] called to discuss specifics of the case. The only information available to provide was obtained from the discharge summary. 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
[2017-09-15] MEDS: CeFAZolin Premix DUPLEX 2,000 MG/50 ML BAG IVPB SCH ×3 (00:18→16:28)
[2017-09-15] MEDS: *HR* HYDROcodone/Acet 5/325 mg TABLET PO PRN ×4 (00:18→13:07)
[2017-09-15] MEDS: 0.9 % Sodium Chloride 1,000 ML IVC SCH ×2 (00:19→16:33)
--- NOTE | 2017-09-15 02:00 | Electrocardiograph Report ---
[place] [id number] Test Date: 2017-09-08 Pat Name: Les Reynoso Department: 104 Room: 3A55 Gender: M [employer]ato Grader: : 1980 Requested By: Ashok March Order Number: [id number] Reading MD: Janene Grider Measurements Intervals [place] Rate: 135 P: 36 RI: 104 QRS: 9 QRSD: 88 T: 70 QT: 259 QTc: 338 Interpretive Statements SINUS TACHYCARDIA WITH SHORT RI INTERVAL NONSPECIFIC ST & T-WAVE ABNORMALITY ABNORMAL RHYTHM ECG Electronically Signed On 09-15-2017 1:58:32 EST by Janene Grider
[2017-09-15 06:50] LABS: Hematocrit 21.6 % (37.5-50.1); Hemoglobin 7.3 g/dL (12.9-16.9); Mean Corpuscular HGB Conc 33.8 g/dL (31.6-35.5); Mean Corpuscular Hemoglobin 31.3 pg (28.0-33.3); Mean Corpuscular Volume 92.7 fL (83.0-100.0); Mean Platelet Volume 8.9 fL (9.4-12.4); Platelet Count 475 K/mcL (140-400); Red Blood Count 2.33 M/mcL (4.19-5.50)
[2017-09-15] MEDS: *HR* Heparin 5,000 UNIT/ML VIAL SQ SCH ×2 (07:01→16:29)
[2017-09-15] MEDS: traMADol 50 MG TABLET PO PRN (07:01)
[2017-09-15 07:08] LABS: Calcium 7.6 mg/dL (8.6-10.3); Carbon Dioxide 24 mEq/L (23-29); Chloride 105 mEq/L (98-107); Potassium 4.1 mEq/L (3.5-5.1); Sodium 133 mEq/L (136-145)
[2017-09-15 07:14] LABS: BUN/Creatinine Ratio 11 (6-26); Blood Urea Nitrogen 7 mg/dL (6-20); Glucose 92 mg/dL (70-105); Osmolality,Calculated 274 (280-300); eGFR For African Americans > 60 (> 60); eGFR For Non-African Americans > 60 (> 60)
[2017-09-15 07:50] LABS: Lymphocytes # 3.7 K/mcL (0.6-4.6); Monocytes # 1.3 K/mcL (0.0-1.3); Neutrophils # 10.6 K/mcL (1.6-8.9)
[2017-09-15] MEDS ORDERED: *HR* FentaNYL (PF) 100 MCG/2 ML VIAL IVP ONE (09:48)
[2017-09-15] MEDS ORDERED: Ketorolac 30 MG/ML VIAL IVP ONE (10:00)
[2017-09-15 10:50] LABS: RBC,Pleural Fluid 0.021 M/mcL
[2017-09-15 10:52] LABS: RBC,Pleural Fluid 0.071 M/mcL
[2017-09-15 11:11] LABS: LDH,Pleural Fluid 290 Units/L (No Ref Range); Total Protein,Pleural Fluid < 3.0 g/dL (No Ref Range)
[2017-09-15 11:50] LABS: Appearance of Pleural Fl Bloody (Clear)
[2017-09-15 11:51] LABS: Appearance of Pleural Fl Bloody (Clear)
[2017-09-15 12:29] LABS: LDH,Pleural Fluid 495 Units/L (No Ref Range); Total Protein,Pleural Fluid < 3.0 g/dL (No Ref Range)
--- NOTE | 2017-09-15 12:43 | IR Procedure Note ---
Date of procedure: 09/15/17 Consent Obtained: Verbal consent, Written consent Timeout: Correct patient and procedure verified, Correct site verified, Time out performed, Skin prep completed Local anesthetic: Lidocaine 1% Indications: bilateral pleural effusions Procedure Performed: R chest tube; L thoracentesis Was there an certified teacher assistant present: No Site/Technique: bilateral chest Results/Findings: serosanguinous fluid Estimated blood loss (cc): 2 Complications: None; Tolerated procedure well Post Procedure Treatment Plan: chest tube to -20 cm H20 suction; clamp for 1 hour if >1L/1hr output Specimen: pleural fluid
--- NOTE | 2017-09-15 13:38 | Infectious Disease Progress No ---
Date of Encounter: 09/15/17 Time of Encounter: 13:40 - Assessment and Plan (1) Severe sepsis Current Visit: Yes Status: Acute The patient continues to have 3 SIRS criteria. Likely secondary to infective endocarditis and MSSA bacteremia. Fevers low-grade. Continues to have tachycardia and leukocytosis. Blood cultures drawn 09/08/17 are positive 2/2 sets for MSSA. Repeat blood cultures drawn 09/09/17 are positive 2/2 sets for MSSA. Additional blood cultures drawn 09/10/17 are positive 1/2 sets for MSSA. Most recent set of blood cultures drawn 09/13/17 are NGTD x 2 sets. (2) MSSA bacteremia Current Visit: Yes Status: Acute Causative organism: MSSA. Source likely IVDU and endocarditis. Blood cultures drawn 09/08/17 are positive 2/2 sets for MSSA. Repeat blood cultures drawn 09/09/17 are positive 2/2 sets for MSSA. Additional blood cultures drawn 09/10/17 are positive 1/2 sets for MSSA. Most recent set of blood cultures drawn 09/13/17 are NGTD x 2 sets. Complicated due to persistent bacteremia and septic emboli. PURVI showed 3 vegetations with the largest on the tricuspid valve. The patient has two major and three minor Modified Aguilera's Criteria. Repeat CT scan of the chest showed interval worsening of the septic emboli. Continue Cefazolin 2 grams IV Q8H. Duration of treatment depends on the clinical picture, but likely 6 weeks of IV antibiotics. Patient is awaiting transfer to [facility] for further evaluation by the CTS team for possible surgical intervention. Monitor renal function and dose-adjust antibiotics. (3) Infective endocarditis Current Visit: Yes Status: Acute Causative organism: MSSA. Likely secondary to IVDU. PURVI showed three vegetations, one each on the tricuspid, aortic, and pulmonic valves. Two major and three minor Modified Aguilera's Criteria met. Awaiting transfer to [facility] for CTS evaluation for possible valve replacement. Continue antibiotics as above. Qualifiers: Infective endocarditis organism: bacterial Chronicity: acute Qualified Code(s): I33.0 - Acute and subacute infective endocarditis (4) Pleural effusion Current Visit: Yes Status: Acute Likely secondary to aggressive fluid volume resuscitation. CT chest completed on admission did not show any pleural effusions, but the repeat CT scan completed 09/13/17 showed bilateral pleural effusions, increased since previous study. IR consulted. Status post right sided chest tube placement and left sided thoracentesis. Recommend sending samples from both sides for cell count with differential, protein, LDH, glucose, and culture (anaerobic and aerobic). Check serum LDH. Get stat chest x-ray given the patient's sudden onset of thoracic pain and shortness of breath after the procedure. (5) Back pain Current Visit: Yes Status: Acute Likely secondary to re-expansion of the left lung status post thoracentesis. Get stat CXR. Further management per the primary team. Qualifiers: Back pain location: thoracic back pain Chronicity: acute Back pain laterality: left Qualified Code(s): M54.6 - Pain in thoracic spine (6) Hepatitis C antibody positive in blood Current Visit: Yes Status: Acute Hepatitis Panel positive for Hepatitis C antibodies. Outpatient GI referral if the patient wishes to pursue treatment. (7) History of intravenous drug abuse Current Visit: Yes Status: Acute After asking the patient again today, he reports that he recently "fell off the wagon" and reports IV drug usage a couple weeks ago after being clean for several months. Positive for Hep C antibodies. HIV screen pending. - Subjective Interval history: Patient seen and examined status post thoracentesis and chest tube placement. Patient complains of severe left back pain with dyspnea and diaphoresis. He states the pain limits his ability to take a deep breath and it is better when he is sitting straight up. Denies nausea, vomiting, or diarrhea. Denies fevers or chills overnight. Awaiting transfer to [facility]. Infect Dis PN-Objective Data - Labs CBC & Chem 7: 09/15/17 06:39 09/15/17 06:39 Labs: Laboratory Results - last 24 hr 09/14/17 09/15/17 09/15/17 05:33 06:39 06:39 WBC 15.6 H RBC 2.33 L Hgb 7.3 L D Hct 21.6 L MCV 92.7 MCH 31.3 MCHC 33.8 RDW 14.0 Plt Count 475 H MPV 8.9 L Seg Neutrophils % 66.0 Band Neutrophils % 2.0 Lymphocytes % 24.0 Monocytes % 8.0 Neutrophils # 10.6 H Lymphocytes # 3.7 Monocytes # 1.3 Platelet Estimate Slight increase H Sodium 133 L Potassium 4.1 Chloride 105 Carbon Dioxide 24 BUN 7 Creatinine 0.63 L Est GFR ( Amer) > 60 Est GFR (Non-Af Amer) > 60 BUN/Creatinine Ratio 11 Glucose 92 POC Glucose 99 H Calculated Osmolality 274 L Calcium 7.6 L Pleural Fluid Volume Pleural Appearance Pleural pH Pleural RBC Pleural Tot Nuc Cell Pleural Neutrophils Pleural Band Neuts Pleural Eosinophils Pleural Basophils Pleural Lymphocytes % Pleural Monocytes % Pleural Other Cells % Pleural Total Protein Pleural LDH Pleural Glucose 09/15/17 09/15/17 09/15/17 09:15 09:15 09:15 WBC RBC Hgb Hct MCV MCH MCHC RDW Plt Count MPV Seg Neutrophils % Band Neutrophils % Lymphocytes % Monocytes % Neutrophils # Lymphocytes # Monocytes # Platelet Estimate Sodium Potassium Chloride Carbon Dioxide BUN Creatinine Est GFR ( Amer) Est GFR (Non-Af Amer) BUN/Creatinine Ratio Glucose POC Glucose Calculated Osmolality Calcium Pleural Fluid Volume 60.0 Pleural Appearance Bloody A Pleural pH 8.00 Pleural RBC 0.071 H Pleural Tot Nuc Cell 2491 H Pleural Neutrophils 77.0 Pleural Band Neuts Test Not Performed Pleural Eosinophils Test Not Performed Pleural Basophils Test Not Performed Pleural Lymphocytes % 22.0 Pleural Monocytes % 1.0 Pleural Other Cells % Test Not Performed Pleural Total Protein < 3.0 Pleural LDH 495 Pleural Glucose 74 09/15/17 09/15/17 09:15 09:15 WBC RBC Hgb Hct MCV MCH MCHC RDW Plt Count MPV Seg Neutrophils % Band Neutrophils % Lymphocytes % Monocytes % Neutrophils # Lymphocytes # Monocytes # Platelet Estimate Sodium Potassium Chloride Carbon Dioxide BUN Creatinine Est GFR ( Amer) Est GFR (Non-Af Amer) BUN/Creatinine Ratio Glucose POC Glucose Calculated Osmolality Calcium Pleural Fluid Volume 525.0 Pleural Appearance Bloody A Pleural pH 8.00 Pleural RBC 0.021 H Pleural Tot Nuc Cell > 22374 H Pleural Neutrophils 78.0 Pleural Band Neuts Test Not Performed Pleural Eosinophils Test Not Performed Pleural Basophils Test Not Performed Pleural Lymphocytes % 9.0 Pleural Monocytes % 3.0 Pleural Other Cells % 10.0 Pleural Total Protein < 3.0 Pleural LDH 290 Pleural Glucose Cultures: Cultures 09/13/17 08:26 Blood Culture - Preliminary Peripheral Venipuncture No growth. 09/13/17 08:26 Blood Culture - Preliminary Peripheral Venipuncture No growth. 09/10/17 16:37 Blood Culture - Final Peripheral Venipuncture Staphylococcus aureus 09/10/17 16:37 Blood Culture - Preliminary Peripheral Venipuncture No growth. 09/09/17 13:12 Blood Culture - Final Peripheral Venipuncture Staphylococcus aureus 09/09/17 13:12 Blood Culture - Final Peripheral Venipuncture Staphylococcus aureus Serology 09/15/17 09/15/17 09/15/17 Range/Units 09:15 09:15 09:15 Pleural Fluid Volume 525.0 mL Pleural Appearance Bloody A (Clear) Pleural pH 8.00 (No Ref Range) pH Units Pleural RBC 0.021 H (0.000 - 0.002) M/mcL Pleural Tot Nuc Cell > 86390 H (0-1000) TNC/mcL Pleural Neutrophils 78.0 % Pleural Band Neuts Test Not Performed Pleural Eosinophils Test Not Performed Pleural Basophils Test Not Performed Pleural Lymphocytes % 9.0 % Pleural Monocytes % 3.0 % Pleural Other Cells % 10.0 Pleural Total Protein < 3.0 < 3.0 (No Ref Range) g/dL Pleural LDH 290 495 (No Ref Range) Units/L Pleural Glucose (No Ref Range) mg/dL A. baumannii (PCR) (Not Detect) Dariela albicans (PCR) (Not Detect) C. glabrata (PCR) (Not Detect) C. krusei (PCR) (Not Detect) C. parapsilosis (PCR) (Not Detect) C. tropicalis (PCR) (Not Detect) Enterobacteriac sp PCR (Not Detect) E. cloacae complex PCR (Not Detect) Enterococcus sp PCR (Not Detect) E. coli (PCR) (Not Detect) H. influenzae (PCR) (Not Detect) Hepatitis A IgM Ab (Nonreactive) Hep Bs Antigen (Nonreactive) Hep B Core IgM Ab (Nonreactive) Hepatitis C Ab Screen (Nonreactive) Klebsiella oxytoca PCR (Not Detect) Klebsiella pneumoniae (Not Detect) List. monocytogenes PCR (Not Detect) N. meningitidis (PCR) (Not Detect) Proteus species (PCR) (Not Detect) Serratia marcescens PCR (Not Detect) Staphylococcus sp PCR (Not Detect) Staph aureus (PCR) (Not Detect) mecA-Methicil Res Gene (Not Detect) Streptococcus sp PCR (Not Detect) Group A Strep DNA (Not Detect) Group B Strep (PCR) (Not Detect) Strep pneumoniae (PCR) (Not Detect) P. aeruginosa (PCR) (Not Detect) Shashi/B-Vanco Res Genes (Not Detect) KPC (blaKPC) Detect PCR (Not Detect) 09/15/17 09/15/17 09/12/17 Range/Units 09:15 09:15 09:45 Pleural Fluid Volume 60.0 mL Pleural Appearance Bloody A (Clear) Pleural pH 8.00 (No Ref Range) pH Units Pleural RBC 0.071 H (0.000 - 0.002) M/mcL Pleural Tot Nuc Cell 2491 H (0-1000) TNC/mcL Pleural Neutrophils 77.0 % Pleural Band Neuts Test Not Performed Pleural Eosinophils Test Not Performed Pleural Basophils Test Not Performed Pleural Lymphocytes % 22.0 % Pleural Monocytes % 1.0 % Pleural Other Cells % Test Not Performed Pleural Total Protein (No Ref Range) g/dL Pleural LDH (No Ref Range) Units/L Pleural Glucose 74 (No Ref Range) mg/dL A. baumannii (PCR) (Not Detect) Dariela albicans (PCR) (Not Detect) C. glabrata (PCR) (Not Detect) C. krusei (PCR) (Not Detect) C. parapsilosis (PCR) (Not Detect) C. tropicalis (PCR) (Not Detect) Enterobacteriac sp PCR (Not Detect) E. cloacae complex PCR (Not Detect) Enterococcus sp PCR (Not Detect) E. coli (PCR) (Not Detect) H. influenzae (PCR) (Not Detect) Hepatitis A IgM Ab Nonreactive (Nonreactive) Hep Bs Antigen Nonreactive (Nonreactive) Hep B Core IgM Ab Nonreactive (Nonreactive) Hepatitis C Ab Screen Reactive H (Nonreactive) Klebsiella oxytoca PCR (Not Detect) Klebsiella pneumoniae (Not Detect) List. monocytogenes PCR (Not Detect) N. meningitidis (PCR) (Not Detect) Proteus species (PCR) (Not Detect) Serratia marcescens PCR (Not Detect) Staphylococcus sp PCR (Not Detect) Staph aureus (PCR) (Not Detect) mecA-Methicil Res Gene (Not Detect) Streptococcus sp PCR (Not Detect) Group A Strep DNA (Not Detect) Group B Strep (PCR) (Not Detect) Strep pneumoniae (PCR) (Not Detect) P. aeruginosa (PCR) (Not Detect) Shashi/B-Vanco Res Genes (Not Detect) KPC (blaKPC) Detect PCR (Not Detect) 09/10/17 Range/Units 16:37 Pleural Fluid Volume mL Pleural Appearance (Clear) Pleural pH (No Ref Range) pH Units Pleural RBC (0.000 - 0.002) M/mcL Pleural Tot Nuc Cell (0-1000) TNC/mcL Pleural Neutrophils % Pleural Band Neuts Pleural Eosinophils Pleural Basophils Pleural Lymphocytes % % Pleural Monocytes % % Pleural Other Cells % Pleural Total Protein (No Ref Range) g/dL Pleural LDH (No Ref Range) Units/L Pleural Glucose (No Ref Range) mg/dL A. baumannii (PCR) Not Detected (Not Detect) Dariela albicans (PCR) Not Detected (Not Detect) C. glabrata (PCR) Not Detected (Not Detect) C. krusei (PCR) Not Detected (Not Detect) C. parapsilosis (PCR) Not Detected (Not Detect) C. tropicalis (PCR) Not Detected (Not Detect) Enterobacteriac sp PCR Not Detected (Not Detect) E. cloacae complex PCR Not Detected (Not Detect) Enterococcus sp PCR Not Detected (Not Detect) E. coli (PCR) Not Detected (Not Detect) H. influenzae (PCR) Not Detected (Not Detect) Hepatitis A IgM Ab (Nonreactive) Hep Bs Antigen (Nonreactive) Hep B Core IgM Ab (Nonreactive) Hepatitis C Ab Screen (Nonreactive) Klebsiella oxytoca PCR Not Detected (Not Detect) Klebsiella pneumoniae Not Detected (Not Detect) List. monocytogenes PCR Not Detected (Not Detect) N. meningitidis (PCR) Not Detected (Not Detect) Proteus species (PCR) Not Detected (Not Detect) Serratia marcescens PCR Not Detected (Not Detect) Staphylococcus sp PCR DETECTED A (Not Detect) Staph aureus (PCR) DETECTED A (Not Detect) mecA-Methicil Res Gene Not Detected (Not Detect) Streptococcus sp PCR Not Detected (Not Detect) Group A Strep DNA Not Detected (Not Detect) Group B Strep (PCR) Not Detected (Not Detect) Strep pneumoniae (PCR) Not Detected (Not Detect) P. aeruginosa (PCR) Not Detected (Not Detect) Shashi/B-Vanco Res Genes Not Detected (Not Detect) KPC (blaKPC) Detect PCR Not Detected (Not Detect) - Impressions Impressions Thoracentesis 09/15/17 00:00 IMPRESSION: 1. Ultrasound-guided right pigtail chest tube placement. 2. Ultrasound-guided left thoracentesis. D/ / Ted Valadez MD / Ted Valadez MD Interpreting Provider: Ted Valadez MD Thoracentesis Ultrasound 09/15/17 00:00 IMPRESSION: 1. Ultrasound-guided right pigtail chest tube placement. 2. Ultrasound-guided left thoracentesis. D/ / Ted Valadez MD / Ted Valadez MD Interpreting Provider: Ted Valadez MD Chest X-Ray 09/15/17 09:45 IMPRESSION: No visible pneumothorax following right pigtail chest tube placement and left thoracentesis. Persistent bibasilar opacities consistent with pneumonia and/or atelectasis. D/ / Ted Valadez MD / Ted Valadez MD Interpreting Provider: Ted Valadez MD Exam - Constitutional Vitals: Temp Pulse Resp BP Pulse Ox 98.6 F 102 16 134/84 96 09/15/17 11:16 09/15/17 11:16 09/15/17 11:16 09/15/17 11:16 09/15/17 11:16 General appearance: average body habitus, cooperative, mild distress - Head Head exam: Present: atraumatic, normal inspection, normocephalic - Eye Eye exam: Present: EOMI, normal appearance, PERRL Pupils: Present: normal accommodation Additional comments: No subconjunctival hemorrhage noted. - ENT ENT exam: Present: mucous membranes moist - Neck Neck exam: Present: normal inspection - Respiratory Respiratory exam: Present: CTAB. Absent: rales, respiratory distress, rhonchi, wheezes Additional comments: Thoracentesis noted to the left posterior thorax without crepitus or bleeding. Tenderness noted with palpation of the site. Right sided chest tube noted to the right posterior thorax to water seal with moderate amount of serosanguinous drainage noted in the [facility]. No air leak noted. No crepitus. Chest expansion symmetrical bilaterally with bilateral breath sounds. - Cardiovascular Cardiovascular exam: Present: +S1, tachycardia. Absent: irregular rhythm - GI/Abdominal GI/Abdominal exam: Present: normal bowel sounds, soft. Absent: distended, tenderness - Extremities Exam Extremities exam: Present: normal inspection. Absent: joint swelling, pedal edema, tenderness - Neurological Exam Neurological exam: Present: alert, oriented X3, no focal deficits - Psychiatric Psychiatric exam: Present: anxious - Skin Skin exam: Present: diaphoretic, intact, warm - VTE Documentation of Mechanical Device: Intermittent pneumatic compression device Consult Discharge Plan - Plan Referrals: Dominga Lopez, [Resident] - (Please bring your new patient packet filled out that you will receive in the mail. Bring your photo ID, insurance card, and any medications you are on. If you need to cancel, please give a 24 hour notice. Thank you)
--- NOTE | 2017-09-15 14:55 | Internal Med Progress Note ---
Date of Encounter: 09/15/17 Time of Encounter: 08:15 - Assessment and plan (1) Sepsis Current Visit: Yes Status: Acute Assessment and plan: Sepsis has improved at this time. He remains on IV abx and is awaiting transfer to [facility]. Qualifiers: Sepsis type: methicillin susceptible Staphylococcus aureus Qualified Code(s ): A41.01 - Sepsis due to Methicillin susceptible Staphylococcus aureus (2) MSSA bacteremia Current Visit: Yes Status: Acute Assessment and plan: Currently on IV Ancef. (3) Pulmonary embolism, septic Current Visit: Yes Status: Acute Assessment and plan: Worsened on recent CT scan and associated with pleural effusions. Currently on IV Ancef. Qualifiers: Chronicity: acute Acute cor pulmonale presence: without acute cor pulmonale Qualified Code(s): I26.90 - Septic pulmonary embolism without acute cor pulmonale (4) Infective endocarditis Current Visit: Yes Status: Acute Assessment and plan: Has 3 valves involved. Two vegetations are greater than 1cm. Awaiting transfer to [facility]. Qualifiers: Infective endocarditis organism: bacterial Chronicity: acute Qualified Code(s): I33.0 - Acute and subacute infective endocarditis (5) Pleural effusion associated with pulmonary infection Current Visit: Yes Status: Acute Assessment and plan: L thoracentesis and R small bore chest tube today. Fluid pH on both side is 8. Fluid bilaterally appears bloody and has a large number of leukocytes. (6) Anemia Current Visit: Yes Status: Acute Assessment and plan: Has had steady decline in H/H. Most likely related to bloody pleural effusion. Will type and screen pending transfer to [facility] Qualifiers: Anemia type: other cause Other causes of anemia: acute posthemorrhagic Qualified Code(s): D62 - Acute posthemorrhagic anemia (7) Hepatitis C Current Visit: Yes Status: Chronic Assessment and plan: Needs further follow up. Qualifiers: Viral hepatitis chronicity: chronic Hepatic coma status: without hepatic coma Qualified Code(s): B18.2 - Chronic viral hepatitis C (8) Tobacco abuse Current Visit: Yes Status: Chronic Assessment and plan: Chronic issue. - Subjective Interval history: Mr Reynoso is currently admitted for MSSA bacteremia with associated multiple valve endocarditis and parapneumonic effusions. He remains moderate to high risk due to potential for worsening clinical status. Mr Reynoso was feeling a little better this AM. He was less dyspneic and had less pain. TMAX overall lower overnight. No GI issues. No cough. - Constitutional Vitals: Temp Pulse Resp BP Pulse Ox 98.6 F 102 16 134/84 96 09/15/17 11:16 09/15/17 11:16 09/15/17 11:16 09/15/17 11:16 09/15/17 11:16 General appearance: Present: cooperative, A&O X 3, answers questions appropriately - Head Head exam: Present: normocephalic - Eye Eye exam: Present: EOMI, conjuntiva pink - ENT ENT exam: Present: mucous membranes dry - Respiratory Respiratory exam: Present: decreased breath sounds. Absent: wheezes - Cardiovascular Cardiovascular exam: Present: RRR, systolic murmur - GI/Abdominal GI/Abdominal exam: Present: soft. Absent: tenderness - Extremities Exam Extremities exam: Present: warm. Absent: tenderness - Neurological Exam Neurological exam: Present: alert, oriented X3 - Skin Skin exam: Present: dry, warm Internal Medicine: Result - Labs CBC & Chem 7: 09/15/17 06:39 09/15/17 06:39 Labs: Short CBC 09/15/17 Range/Units 06:39 WBC 15.6 H (4.3-11.1) K/mcL Hgb 7.3 L D (12.9-16.9) g/dL Hct 21.6 L (37.5-50.1) % Plt Count 475 H (140-400) K/mcL Neutrophils # 10.6 H (1.6-8.9) K/mcL BMP 09/15/17 06:39 Sodium 133 L Potassium 4.1 Chloride 105 Carbon Dioxide 24 BUN 7 Creatinine 0.63 L Glucose 92 Calcium 7.6 L - ABG Interpretation ABG results: PT/INR, D-dimer PT 13.9 Seconds (9.4-12.1) H 09/14/17 06:48 - Impressions Impressions Thoracentesis 09/15/17 00:00 IMPRESSION: 1. Ultrasound-guided right pigtail chest tube placement. 2. Ultrasound-guided left thoracentesis. D/ / Ted Valadez MD / Ted Valadez MD Interpreting Provider: Ted Valadez MD Thoracentesis Ultrasound 09/15/17 00:00 IMPRESSION: 1. Ultrasound-guided right pigtail chest tube placement. 2. Ultrasound-guided left thoracentesis. D/ / Ted Valadez MD / Ted Valadez MD Interpreting Provider: Ted Valadez MD Chest X-Ray 09/15/17 09:45 IMPRESSION: No visible pneumothorax following right pigtail chest tube placement and left thoracentesis. Persistent bibasilar opacities consistent with pneumonia and/or atelectasis. D/ / Ted Valadez MD / Ted Valadez MD Interpreting Provider: Ted Valadez MD - VTE Documentation of Mechanical Device: Intermittent pneumatic compression device Consult Discharge Plan - Plan Referrals: Dominga Lopez, [Resident] - (Please bring your new patient packet filled out that you will receive in the mail. Bring your photo ID, insurance card, and any medications you are on. If you need to cancel, please give a 24 hour notice. Thank you)
[2017-09-15 16:26] LABS: Basophils # 0.1 K/mcL (0.0-0.2); Basophils % 0.4 %; Eosinophils # 0.2 K/mcL (0.0-0.6); Eosinophils % 1.3 %; Hemoglobin 8.3 g/dL (12.9-16.9); Immature Granulocytes % 7.2 % (0-4); Lymphocytes # 2.7 K/mcL (0.6-4.6); Lymphocytes % 14.6 %; Mean Corpuscular HGB Conc 33.2 g/dL (31.6-35.5); Mean Corpuscular Hemoglobin 31.1 pg (28.0-33.3); Mean Corpuscular Volume 93.6 fL (83.0-100.0); Mean Platelet Volume 8.9 fL (9.4-12.4); Monocytes # 1.5 K/mcL (0.0-1.3); Monocytes % 8.4 %; Platelet Count 525 K/mcL (140-400); Red Blood Count 2.67 M/mcL (4.19-5.50); Red Cell Distribution Width 14.3 % (11.5-14.5); Segmented Neutrophils % 68.1 %
[2017-09-15] MEDS: *HR* OxyCODONE/APAP 5/325 TABLET PO PRN ×2 (16:29→20:27)
[2017-09-15 16:32] LABS: Neutrophils # 12.5 K/mcL (1.6-8.9)
[2017-09-15 16:52] LABS: Polychromasia 1+ (Not Present)
[2017-09-15] MEDS ORDERED: Ketorolac 30 MG/ML VIAL IVP PRN (17:56)
[2017-09-15 19:46] VITALS: BP 129/85
== END 2017-09-15 20:40 | disposition short-term general hospital (02) | DRG 720 ==
LOC: 3ANU 20:00 → EMEROO 20:00 → SUATTDRO 09-09 01:20 → 3ANU 09-09 01:23
PROVIDERS: ADMIT Internal Medicine; ATTEND Internal Medicine